=== PATIENT | male | born 1940 | race Caucasian/White ===

== ENCOUNTER → 2020-02-26 08:15 | Outpatient (CLI) | payer MEDICARE, BC, SELFPAY ==
[2020-02-18 13:38] VITALS: BMI 32.5
--- NOTE | 2020-02-26 08:28 | MRI_ITS ---
STUDY: MRI LUMBAR SPINE WITHOUT CONTRAST REASON FOR EXAM: Male, 79 years old. back pain -- severe pain left buttock and down left leg, prev lumbar surgery 2016 TECHNIQUE: Standardized fat and water weighted pulse sequences were obtained in the sagittal and axial planes. COMPARISON: X-ray lumbar spine 02/18/2020 FINDINGS: T12-L1: Normal endplates. Normal disc height, hydration and morphology. Normal bilateral facet joints. Normal central canal and bilateral lateral recesses. Normal bilateral intervertebral neural foramina. Normal lumbar lordosis. There is a broad curvature of the lumbar spine convex left. There is been prior operative intervention with interbody spacer at L3-L4 as well as bilateral pedicle screws and rods. Normal conus medullaris that terminates at the mid body of L2 L1-2: Small marginal osteophytes are present. There is disc desiccation with mild broad disc bulge minimally flattening the ventral aspect of the thecal sac but no evidence of significant central canal stenosis. There does appear increased signal intensity in the posterior annulus suggesting an annular tear. Refer for instance 2 image #8 series 2. There is mild bilateral facet arthropathy. The neural foramina are patent. L2-3: Disc desiccation with marginal osteophytes noted and a mild broad disc bulge. This disc bulge appears to narrow the right lateral recess though this area is difficult to evaluate due to ferromagnetic artifact from the prior intervention. There is no [id number] stenosis of the right neural foramen is suspected. The left neural foramen demonstrates mild stenosis. There is no evidence of significant central canal stenosis. There is mild bilateral facet arthropathy with fluid in the facet joints. L3-4: Prior operative intervention with previous laminectomy. Interbody spacer is present. There is no evidence of central or foraminal encroachment. L4-5: Disc height is maintained. Marginal osteophytes are present. There is bilateral facet arthropathy with fluid in the facet joints and on the left there appears impression into the left lateral recess secondary to the facet arthropathy, for instance refer to image #10 series 6. This creates stenosis of the left lateral recess. Loss of fat in the left lateral recesses is well seen for instance also on image #12 series 7. The right lateral recess appears patent. The neural foramina appear patent. L5-S1: Normal endplates. Mild disc bulge. There is moderately severe left facet arthropathy. There is mild right facet arthropathy. There is mild impression upon the left lateral recess. The right lateral recess is patent. The neural foramina on the left demonstrates moderate to severe stenosis, for instance refer to image #6 series 2. The right neural foramen is patent. Normal visualized sacral ala. Normal visualized paraspinous soft tissue structures. MRI/Spine Lumbar (Routine) IMPRESSION: Postsurgical changes as described. There does appear left lateral recess stenosis at L4-5 and left foraminal stenosis at L5-S1. See above for additional details. Electronically Signed: Jen Vincent MD at 11:48 EST , Service support ,
== END ==
PROVIDERS: PCP Family Medicine; Referring Provider Orthopaedic Surgery; Visit Provider Orthopaedic Surgery
DX: M54.16 Radiculopathy, lumbar region (principal)
CPT/HCPCS: 72148

== ENCOUNTER 2020-03-23 14:25 | Observation (INO) | payer MEDICARE, BC, SELFPAY ==
[2020-02-18 13:38] VITALS: BMI 32.5
--- NOTE | 2020-03-14 09:40 | EKG12_ITS ---
Test Reason : PREOP Blood Pressure : / mmHG Vent. Rate : 086 BPM Atrial Rate : 258 BPM P-R Int : 000 ms QRS Dur : 116 ms QT Int : 354 ms P-R-T Axes : 000 019 256 degrees QTc Int : [address] & T wave abnormality, consider inferior ischemia ST & T wave abnormality, consider anterolateral ischemia Abnormal ECG Confirmed by CHELO BENNETT, HUMZA ([id number]), copy editor TRINITY PARISI ([id number]) on 03/15/2020 9:14:15 AM Referred By: Nishant Read Confirmed By:HUMZA WHITNEY MD
[2020-03-14 10:17] LABS: Absolute Lymphocyte Count 1.27 X10^3/uL (0.83-4.51); Absolute Neutrophil Count 7.9 X10^3/uL (2.0-7.7); Basophil# 0.04 X10^3/uL; Basophil% 0.4 % (0-1); Eosinophil# 0.09 X10^3/uL; Eosinophils% 0.9 % (0-5); Hematocrit 39.6 % (40-54); Hemoglobin 13.1 g/dL (13.0-16.5); Lymphocyte # 1.27 X10^3/ul (4.0); Lymphocyte % 12.3 % (19-41); Mean Corp Hgb Conc 33.1 g/dL (32-36); Mean Corpuscular Hgb 32.4 pg (27.0-32.0); Mean Platelet Vol. 9.8 fl (6.2-12.0); Monocyte# 0.98 X10^3/uL; Monocyte% 9.5 % (0-10); NRBC Flagged by Analyzer 0 % (0-5); Neutrophil # 7.92 X10^3/uL (2.7-7.7); Neutrophil % 76.3 % (47-70); Platelet Count 170 K/mm3 (150-450); RBC Distribution Width CV 13.5 % (11.6-14.6); RBC Distribution Width SD 48.8 fl (35.1-43.9); Red Blood Count 4.04 M/mm3 (4.6-6.2); White Blood Count 10.4 K/mm3 (4.4-11.0)
[2020-03-14 10:28] LABS: International Normalized Ratio 1.2; Prothrombin Time (Protime)PT. 14.7 SECONDS (11.7-14.9)
[2020-03-14 10:43] LABS: Anion Gap 7 (5-15); BUN 27 mg/dL (7-18); BUN/Creat Ratio 19.6 RATIO (10-20); Calcium,Total 9.1 mg/dL (8.5-10.1); Chloride 101 mmol/L (98-107); Creatinine, Serum 1.38 mg/dL (0.70-1.30); EST Glomerular Filtration Rate 53 mL/min (>60); Est Glom Filt Rate - Afr Amer 64 mL/min (>60); Glucose 141 mg/dL (74-106); Potassium 3.4 mmol/L (3.5-5.1); Sodium Level 140 mmol/L (136-145)
[2020-03-14 10:49] LABS: AST(SGOT) 25 U/L (15-37); Alanine Aminotransfer ALT/SGPT 29 U/L (16-61); Albumin, Serum 3.5 g/dL (3.2-5.0); Alkaline Phosphatase 56 U/L (45-117); Bilirubin, Direct 0.16 mg/dL (0.00-0.30); Globulin 3.4 g/dL (2.2-4.2); Magnesium 2.1 mg/dL (1.6-2.6); Protein, Total 6.9 g/dL (6.4-8.2)
[2020-03-15 05:07] LABS: HEPATITIS B SURFACE AG Negative (Negative); Hepatitis A AB, Total Negative (Negative); Hepatitis A IgM Antibody Negative (Negative); Hepatitis B Core AB IgM Negative (Negative); Hepatitis B Core Ab Total Negative (Negative); Hepatitis C Ab <0.1 s/co ratio (0.0-0.9)
[2020-03-15 08:32] LABS: Hep B Surface Antibodies Non Reactive (.)
[2020-03-15 14:47] LABS: HIV - WCH Non-Reactive (Nonreactive)
[2020-03-23] VITALS (15 sets, daily range): BP systolic 99–124; BP diastolic 61–80; PULSE 56–79; RESP 16–18; TEMP 35.7–36.9; O2SAT 94–100; BMI 30.8
[2020-03-23] MEDS: Acetaminophen 500 MG Tablet 1000 MG PO (07:00)
[2020-03-23] MEDS: Lactated Ringers 1,000 ML 75 ML IV ×3 (09:33→14:41)
[2020-03-23 09:45] LABS: Bedside Glucose 108 mg/dL (70-110)
--- NOTE | 2020-03-23 10:33 | HP_ITS ---
Intake Intake Visit Reasons: lumbar spine Allergies adhesive tape Allergy (Severe, Verified 03/01/20 09:20) itching mold Allergy (Verified 03/09/20 08:43) Other enalapril Adverse Reaction (Verified 03/09/20 08:44) Other [facility] Medical History (Updated 02/18/20 @ 13:53 by Nory Cote) Atrial fibrillation (Acute) H/o lumbar decompressive laminectomy (Acute) Myasthenia gravis (Acute) h/o lumbar foraminotomy (Acute) Surgical History (Updated 02/18/20 @ 13:52 by Nory Cote) H/O cardiac catheterization (Acute) H/O lumbar discectomy (Acute) History of appendectomy (Acute) History of carpal tunnel surgery of right wrist (Acute) History of lumbar fusion (Acute) History of partial knee replacement (Acute) History of tonsillectomy (Acute) Hx of cataract surgery (Acute) Family History (Updated 02/18/20 @ 13:56 by Nory Cote) Mother Myocardial infarction Father Lung cancer Social History (Updated 03/17/20 @ 10:[address] Nishant Read DO) household members: spouse housing: house Smoking Status: Never smoker alcohol intake: never what type of physical activity do you participate in: none do you feel safe at home: Yes HPI lumbar spine: Details: Parts of this documentation were recorded by a scribe, this documentation accurately reflects the service provided and the decisions made by me, Dr. Nishant Read DO 03/17/20 0843. ERNST MEREDITH is a 79 year old M here today for preop appointment for Laminectomy,Lumbar Micro Decompression. Patient continues to have back pain. Denies any changes in pain, medications, allergies or medial hx. Gave patient surgical soap, surgical drinks. Patient aware to stop his Eliquis 48hrs prior to surgery. Ernst is here for his preoperative evaluation. His left leg pain continues unabated. We discussed the surgery at length what to expect and possible risks and complications. The history and physical was performed. His review of systems was unchanged from last time. Examination of the head was essentially normal. He had a normal rate and rhythm and his chest was clear to auscultation. Cranial nerves II through XII were intact. His abdomen was nontender and there were no masses palpated. I will see him again at surgery next . ROS Const Denies system reviewed and no additional complaints, except as docu, Denies chills, Denies fatigue, Denies fever(s), Denies frequent falls, Denies headache(s), Denies weakness ENT Denies headache(s) Card Denies system reviewed and no additional complaints, except as docu, Denies chest pain, Denies shortness of breath Resp Denies system reviewed and no additional complaints, except as docu, Denies chest congestion, Denies cough, Denies shortness of breath GI Denies system reviewed and no additional complaints, except as docu, Denies abdominal pain, Denies constipation, Denies incontinent of stools, Denies loose stools, Denies nausea, Denies vomiting Denies system reviewed and no additional complaints, except as docu, Denies urinary incontinence Musc Reports system reviewed and no additional complaints, except as docu, Reports abnormal walking, Reports joint pain, Reports numbness, Reports stiffness, Reports tingling Skin/Breast Denies system reviewed and no additional complaints, except as docu, Denies dry skin, Denies redness, Denies lesions, Denies new lesions, Denies non-healing lesions, Denies itching, Denies rash, Denies skin ulcer, Denies sores, Denies wounds Neuro Yes system reviewed and no additional complaints, except as docu, Yes abnormal walking, No frequent falls, No headache(s), Yes numbness, Yes radiating pain, Yes tingling, No weakness Endo Denies fatigue Assessment & Plan Problems 1. HNP (herniated nucleus pulposus), lumbar M51.26 Coding Level of Care Code Off vis,est,level 2 Diagnoses HNP (herniated nucleus pulposus), lumbar M51.26 Time Spent (min) 20
[2020-03-23] MEDS: Cefazolin 2 GM in 0.9% Normal Saline 100 ML IV (10:40)
[2020-03-23] MEDS: THROMBIN (RECOMBINANT) 20,000 UNIT VIAL 20000 UNIT TOPICAL (10:55)
--- NOTE | 2020-03-23 11:50 | RAD_ITS ---
STUDY: X-RAY - LUMBAR SPINE REASON FOR EXAM: Male, 79 years old. LAMINECTOMY L4, L5 TECHNIQUE: 1 view(s) of the lumbar spine were obtained. COMPARISON: None FINDINGS: Posterior fusion is seen at L3-4 in good alignment. Degenerative disease at L4-5 L5-S1. The soft tissue structures are unremarkable. RAD/Spine 1 View Any Level IMPRESSION: Posterior fusion is seen at L3-4 in good alignment. Electronically Signed: Mejia Ho MD at 12:02 EST Tel , Service support ,
--- NOTE | 2020-03-23 12:50 | PCM.OPRPT ---
Report of Operation Description of Surgical Findings:: Preoperative diagnosis: Disc protrusion with lateral recess stenosis L4-5 on the left Postoperative diagnoses: The same Procedure: Repeat laminectomy with opening of the lateral recess L4-5 left Surgeon: Dr. Read assistant health educator: Trevor MASCORRO Anesthesia: General endotracheal anesthesia administered by [facility] Drains: Medium Hemovac Estimated blood loss: Less than 20 cc Complications: None Patient was taken to the OR he was placed under general endotracheal anesthesia while on his gurney. Catheter was inserted. Neuro monitoring placed all the leads in the patient. We then moved him onto the prone position on the Deny frame with care to protect his bony prominences his genitalia the brachial plexus on both sides the ulnar nerves of both elbows and her his cervical spine. The back was then prepped and draped in standard fashion. A longitudinal incision centered over L4-5. Subcutaneous tissues were incised length of the skin incision. 5 some scar tissue because he did have pedicle screws between 3 and 4 fusion that was done 5 years ago. But we did not know was that they had done a laminectomy at L4-5 and simply not fused it. Took an intraoperative x-ray with the marker in place to assure that we were indeed at 4 5 which we were. And elevated the paravertebral muscles off the lamina 5 and turns out the lamina of 4 I was very suspicious that I did not feel full lamina like I should have. I at that point I suspected that they had indeed done laminectomy also at this level. Very carefully found the edges of the laminectomy and released the scar tissue from around the site. Note that the left a lot of ligamentum flavum lateralward including the superior facet L5 the cause lateral recess stenosis on top of the the disc protrusion on the left side. Carefully and judiciously using curettes and 45 degree Kerrison rongeurs to slowly enlarge the laminectomy I also was able to release the scar and ligamentum flavum off the top of the L5 lamina and laminectomy on the top of L5 was also carried out with 45 degree Kerrison rongeurs. I used an osteotome to perform a medial facetectomy 545 first removing the bottom of L4 releasing the underside of the facet of L5. 5 degree Kerrison rongeurs were then used to finish the medial facetectomy. Had a hard time releasing all the ligamentum flavum off the bone from it was left on the dura of course there was no need to actually remove it since it was quite adhered to it. Fashion I was able to completely open the lateral recess. I then slowly released adhesions off of the disc space and the disc was identified. Note the dull though it was bulging once the lateral recess was open there was no actual pressure on the L5 nerve. Therefore the decision was made to leave the disc alone as violating the disc and removing disc material with more quickly degenerated to 4 5 space pressure with a fusion above would end up having problem with it in the future. That throughout the case we carried out thorough irrigation repeatedly. Also we used a bipolar cautery and thrombin-soaked Gelfoam to maintain epidural hemostasis. We had excellent hemostasis after thoroughly irrigated 1 last time I placed an amnionic membrane directly over the dura and nerve root to prevent any more adhesions. Especially true after having had a laminectomy there before. In place Gelfoam over the top of that a medium Hemovac was then inserted and closure was begun. We closed the lumbar fascia using [id number] suture with #1 Vicryl for closure of subcutaneous tissues with 2-0 Vicryl in interrupted fashion and the skin was approximated using skin clips sterile dressings were applied the drain was sewn in and sterile dressings were then applied. He was then recovered in the OR he was moved to his hospital bed and taken to recovery in satisfactory condition this interoperative summary: Ernst Gamino.
--- NOTE | 2020-03-23 14:15 | CON.PCM_ITS ---
Problem List (1) Myasthenia gravis Status: Chronic (2) Chronic A. fib Status: Chronic (3) Chronic lower back pain, sciatica Status: Acute Reason for Consult Date of Consultation: 03/23/20 Reason for Consultation: Perioperative management of myasthenia gravis and A. fib History of Present Illness: The patient is a 79 year old M with history of myasthenia gravis diagnosed June 2019 as per patient and chronic A. fib on digoxin and Eliquis was admitted for elective repeat laminectomy. Patient has lumbar degenerative disorder with disc protrusion, lateral recess stenosis L4-L5 on the left. Patient had laminectomy with opening of lateral recess L4-L5 on the left side by Dr. Read under general anesthesia. Patient has drain. Myasthenia gravis: Patient denies any history of myasthenia crisis in recent past. Is on prednisone 5 mg daily and pyridostigmine. Denies any ocular, facial, cervical muscle weakness. Patient has Cintron catheter. A. fib: Last EKG on March 14 shows A. fib at 86 bpm with previous/old inferior infarct. Patient had last echo in April 06, 2019 shows EF 60 to 65%, LA dilated, RA markedly dilated, RVSP 19 mmHg. Patient follows process pumper Dr. Henley in [place] and also follows neurologist in [place]. [] Past Medical History Past Medical History (Chronic Problems): Chronic Problems (Last Updated 02/18/20 @ 13:53 by Nory Cote) Myasthenia gravis (Chronic) Chronic A. fib (Chronic) Medical History: Medical History (Last Updated 02/18/20 @ 13:53 by Nory Cote) Atrial fibrillation I48.91 H/o lumbar decompressive laminectomy L3-L4 Myasthenia gravis G70.00 h/o lumbar foraminotomy bilateral L3 through L5 partial Allergies adhesive tape Allergy (Severe, Verified 03/23/20 09:06) itching mold Allergy (Verified 03/23/20 09:06) Other DEFINED WITH ALLERGY TESTING enalapril Adverse Reaction (Verified 03/23/20 09:06) Other COUGH Home Medications: Ambulatory Orders Medication Instructions Recorded B-complex with vitamin C 1 tab PO DAILY 02/18/20 apixaban 5 mg tablet 1 tab PO BID 02/18/20 digoxin 125 mcg (0.125 mg) tablet 1 tab PO DAILY 02/18/20 dutasteride 0.5 mg capsule 0.5 mg PO DAILY 02/18/20 furosemide 40 mg tablet 1 tab PO DAILY 02/18/20 gabapentin 100 mg capsule 100 mg PO BID 02/18/20 metoprolol succinate 25 mg 25 mg PO DAILY 02/18/20 tablet,extended release 24 hr potassium chloride 10 mEq 20 meq PO DAILY 02/18/20 capsule,extended release pyridostigmine bromide 60 mg tablet 60 mg PO TID 02/18/20 red yeast rice 600 mg capsule 1,200 mg PO DAILY 02/18/20 rosuvastatin 10 mg tablet 10 mg PO QHS 02/18/20 tamsulosin 0.4 mg capsule 0.4 mg PO DAILY 02/18/20 vit C,E,zinc,copper-[id number] 250 1 cap PO DAILY 02/18/20 mg-lutein 5 mg-zeaxanthin 1 mg capsule prednisone 20 mg tablet 5 mg PO DAILY tab 03/01/20 Albuterol Inhaler [Ventolin Hfa 1 - 2 puff INHALATION Q6H PRN PRN 03/09/20 (SP)] Amoxicillin [Amoxil] 2,000 mg PO UD 03/09/20 Fluticasone/Salmeterol [Advair 1 ea IH BID 03/09/20 500-50 Diskus] Multivit-Min/FA/Lycopen/Lutein 1 ea PO DAILY 03/09/20 [Centrum Silver Men Tablet] Surgical History: Surgical History (Last Updated 02/18/20 @ 13:52 by Nory Cote) H/O cardiac catheterization Z98.890 H/O lumbar discectomy Z98.890 right L3 with posterior lumbar interbody fusion at L3-L4 History of appendectomy Z90.49 History of carpal tunnel surgery of right wrist Z98.890 History of lumbar fusion Z98.1 bilateral L3-L4 #dX instrumented fusion with local bone Mastergraft and BMP fusion with intraoperative biplanar fluoroscopy History of partial knee replacement Z96.659 left and right History of tonsillectomy Z90.89 Hx of cataract surgery Z98.49 bilaterally Smoking Status: Never smoker Tobacco Use: Non-smoker Review of Systems Constitutional: Denies: Chills, Fever, Weight Change HEENT: Denies: Head Aches, Sinus Congestion, Sinus Drainage Cardiovascular: Denies: Chest Pain, Palpitations Respiratory: Denies: Cough, Shortness of breath at rest, Sputum production Gastrointestinal: Denies: Abdominal Pain, Nausea, Vomiting Genitourinary: Denies: Dysuria Musculoskeletal: Reports: Back Pain, Joint stiffness - Back stiffness, Leg Pain, Muscle pain. Denies: Joint Pain, Joint Tenderness Skin: Denies: Rash, Wounds Neurological: Denies: Focal weakness, Numbness, Tingling Psychiatric: Denies: Anxiety, Depression, Homicidal Ideations, Suicidal Ideations Hematologic/ Lymphatic: Denies: Easy Bruising, Easy Bleeding Objective: Physical exam General: Alert, Oriented x3, Cooperative HEENT: Atraumatic, PERRLA, EOMI, Normocephalic Oral: Oral mucosa moist. No Gingival or Mucosal Lesions/ Ulcerations Neck: Supple, No JVD, Negative Carotid Bruits Lungs: Air entry diminished in bilateral lung bases. No crepitation/rhonchi Cardiovascular: Irregular rate, A. fib at 70 bpm, Normal S1, Normal S2, No murmurs Abdomen: Bowel Sounds Present, Soft, Non Tender, Non-Distended : Cintron catheter, dark yellow urine, 40 mL. No renal angle tenderness. No suprapubic tenderness. Extremities: No edema, Capillary Refill Less than 3 Seconds Skin: No rashes, No breakdown Musculoskeletal: No Tenderness to Palpation of Joints or Extremities Spine: Dressing at the lumbar spine is dry. Small CARMINE drain with a small amount of serosanguineous discharge. Neurological: Cranial nerves II-XII grossly intact, Deep Tendon Reflexes 2+/4 and Symmetrical, Neuro grossly intact Psych/Mental Status: Normal Affect, Appropriate. - Physical Exam Vitals/I&O's: Vital Signs Temp Pulse Resp BP Pulse Ox 96.4 F L 70 16 114/73 100 03/23/20 13:48 03/23/20 13:48 03/23/20 13:48 03/23/20 13:45 03/23/20 13:48 Oxygen Flow Rate (L/min) 6 Oxygen Delivery Method Simple Mask Weight: 240 lb 1.334 oz Body Mass Index (BMI) 30.8 Intake and Output for Last 24 Hours 03/21/20 03/22/20 03/23/20 23:59 23:59 23:59 Intake Total 1217 / 1217 Output Total 43 / 43 Balance 1174 / 1174 Microbiology Past 72 Hours 03/22/20 09:55 Interface Orders SARS-CoV-2 Antigen (Rapid) - Final Laboratory Results 03/23/20 09:18: POC Glucose 108 Current Medications Diazepam (Diazepam 5 Mg Tablet) 5 mg PO Q6H PRN PRN PRN Reason: Muscle Spasms Enteral Nutritional Formula (Ensure Surgery 237 Ml Liquid) 237 ml PO TIDCM [facility] Famotidine (Famotidine 20 Mg Tablet) 20 mg PO BID [facility] Lactated Ringer's () 1,000 mls @ 75 mls/hr IV .[id number] [facility] Last Admin: 03/23/20 13:19 Dose: 75 mls/hr Documented by: Cefazolin Sodium () 1 gm in 50 mls @ 100 mls/hr IV Q8H [facility] Stop: 03/24/20 02:59 Insulin Human Lispro (Insulin Lispro 100 Unit/Ml Insuln.Pen) 1 - 6 unit SC Q4H PRN PRN; Protocol PRN Reason: BG>/= 180, SEE PROTOCOL Stop: 03/23/20 18:00 Morphine Sulfate (Morphine 4 Mg/Ml Syringe) 2 - 4 mg IV Q2H PRN PRN PRN Reason: Pain Score 6-10 Morphine Sulfate (Morphine 2 Mg/Ml Syringe) 2 - 4 mg IV Q2H PRN PRN PRN Reason: Pain Score 6-10 Ondansetron HCl (Ondansetron 4 Mg/2 Ml Vial) 4 mg IV Q8H PRN PRN PRN Reason: NAUSEA Senna/Docusate Sodium (Senna/Docusate Sodium 1 Tablet) 2 tablet PO BID [facility] Sodium Chloride (0.9% Nacl Peripheral Flush Adult/Peds) 5 - 15 ml IV UD PRN PRN Reason: SALINE FLUSH Tramadol HCl (Tramadol 50 Mg Tablet) 50 - 100 mg PO Q6H PRN PRN PRN Reason: Pain Score 4-5 Zolpidem Tartrate (Zolpidem Tartrate 5 Mg Tablet) 5 mg PO QHS PRN PRN PRN Reason: INSOMNIA Assessment/Plan All Active Problems (Last Updated 02/18/20 @ 13:53 by Nory Cote) Chronic lower back pain, sciatica (Acute) This 71-year-old gentleman admitted elective for repeat laminectomy with opening of lateral recess L4-L5 on the left after continued lumbar spinal sciatica pain with radiation to left lower extremity 1. Myasthenia gravis: Patient on pyridostigmine 60 mg 3 times daily, prednisone 5 mg daily and continued. Patient denies any recent myasthenia crisis and is doing good on these medications. Follow-up neurologist as an outpatient. 2. Chronic A. fib on Eliquis: Currently Eliquis on hold. Continue metoprolol. Continue digoxin from tomorrow a.m. heart rate is controlled 56 to 70/min, blood pressure 124/74. CBC, BMP and magnesium ordered. Will leave the decision of resumption of Eliquis on Dr. Dillard saying surgical risk of bleeding. If surgical bleeding risk is acceptable can resume in 24 to 48 hours. Patient denies history of chronic heart failure, coronary artery disease/OR or cardiac stent. He stated he is on Lasix because of leg swelling after starting on prednisone 40 mg which is tapered down to 5 mg now. Patient had last echo in April 06, 2019 in [facility] which shows EF 60 to 65%, LA dilated, RA markedly dilated, RVSP 19 mmHg. Patient follows process pumper Dr. Andrea Henley in [place] [] 3. BPH: Urine output is low 40 mL. Continue IV fluid Ringer lactate. Patient on tamsulosin and dutasteride and regimen. 4. COPD/asthma overlap syndrome: Continue patient Advair. Albuterol inhaler as needed 5. 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 Read. PT and OT ordered. Patient is on Neurontin and continued 6. Other comorbidities include dyslipidemia: Patient on rosuvastatin. VTE prophylaxis: Bilateral SCDs. Inpatient E&M: 24242 Init Hosp L3
[2020-03-23] MEDS: 0.9% NaCl Peripheral Flush Adult/Peds IV ×2 (14:26→18:38)
[2020-03-23] MEDS: Morphine 2 MG/ML Syringe IV ×2 (14:26→18:38)
[2020-03-23] MEDS: Potassium Chloride Oral Tablet 20 MEQ 40 MEQ PO (14:45)
[2020-03-23 16:04] LABS: Absolute Lymphocyte Count 0.34 X10^3/uL (0.83-4.51); Absolute Neutrophil Count 8.5 X10^3/uL (2.0-7.7); Basophil# 0.02 X10^3/uL; Basophil% 0.2 % (0-1); Hematocrit 38.2 % (40-54); Hemoglobin 11.9 g/dL (13.0-16.5); Lymphocyte # 0.34 X10^3/ul (4.0); Lymphocyte % 3.8 % (19-41); Mean Corp Hgb Conc 31.2 g/dL (32-36); Mean Corpuscular Hgb 31.9 pg (27.0-32.0); Mean Corpuscular Volume 102.4 fL (80-94); Mean Platelet Vol. 9.5 fl (6.2-12.0); Monocyte# 0.13 X10^3/uL; Monocyte% 1.4 % (0-10); NRBC Flagged by Analyzer 0 % (0-5); Neutrophil # 8.48 X10^3/uL (2.7-7.7); Neutrophil % 94.2 % (47-70); POSITIVE DIFFERENTIAL YES; Platelet Count 218 K/mm3 (150-450); RBC Distribution Width CV 13.7 % (11.6-14.6); Red Blood Count 3.73 M/mm3 (4.6-6.2)
[2020-03-23 16:18] LABS: Anion Gap 3 (5-15); BUN 15 mg/dL (7-18); BUN/Creat Ratio 14.2 RATIO (10-20); Calcium,Total 8.6 mg/dL (8.5-10.1); Chloride 113 mmol/L (98-107); Creatinine, Serum 1.06 mg/dL (0.70-1.30); EST Glomerular Filtration Rate 72 mL/min (>60); Est Glom Filt Rate - Afr Amer 87 mL/min (>60); Estimated Creatinine Clearance 66.78 ml/min; Glucose 122 mg/dL (74-106); Magnesium 2.7 mg/dL (1.6-2.6); Potassium 4.3 mmol/L (3.5-5.1); Sodium Level 142 mmol/L (136-145)
[2020-03-23 16:29] LABS: Differential Indicated SCAN CRITERIA MET
[2020-03-23 16:30] LABS: Anisocytosis 1+; Macrocytosis 1+; Platelet Estimate ADEQUATE (ADEQ); Red Cell Morphology N CHROM NORMAL (NORM C&C)
[2020-03-23] MEDS: Tamsulosin HCl 0.4 MG Capsule PO (17:08)
[2020-03-23] MEDS: Ensure Surgery 237 ML LIQUID PO (17:08)
[2020-03-23] MEDS: Cefazolin 1 GM/50 ML BAG IV (18:38)
[2020-03-23] MEDS: Albuterol 2.5 MG/3 ML VIAL.NEB. INHALATION (19:50)
[2020-03-23] MEDS: Atorvastatin Calcium 20 MG Tablet PO (22:23)
[2020-03-23] MEDS: Gabapentin 100 MG Capsule PO (22:24)
[2020-03-23] MEDS: Famotidine 20 MG Tablet PO (22:24)
[2020-03-23] MEDS: Senna/Docusate Sodium 1 Tablet 2 TABLET PO (22:24)
[2020-03-23] MEDS: Pyridostigmine Bromide 60 MG Tablet PO (22:28)
[2020-03-24] VITALS (11 sets, daily range): BP systolic 97–118; BP diastolic 55–70; PULSE 53–84; RESP 16–18; TEMP 36.4–36.6; O2SAT 93–96
[2020-03-24] MEDS: Cefazolin 1 GM/50 ML BAG IV (02:18)
[2020-03-24 05:58] LABS: Absolute Lymphocyte Count 0.72 X10^3/uL (0.83-4.51); Absolute Neutrophil Count 10.1 X10^3/uL (2.0-7.7); Basophil# 0.01 X10^3/uL; Basophil% 0.1 % (0-1); Hematocrit 33.3 % (40-54); Hemoglobin 10.4 g/dL (13.0-16.5); Lymphocyte # 0.72 X10^3/ul (4.0); Lymphocyte % 6.2 % (19-41); Mean Corp Hgb Conc 31.2 g/dL (32-36); Mean Corpuscular Hgb 32.3 pg (27.0-32.0); Mean Corpuscular Volume 103.4 fL (80-94); Mean Platelet Vol. 9.6 fl (6.2-12.0); Monocyte# 0.73 X10^3/uL; Monocyte% 6.3 % (0-10); NRBC Flagged by Analyzer 0 % (0-5); Neutrophil # 10.13 X10^3/uL (2.7-7.7); Neutrophil % 86.9 % (47-70); Platelet Count 206 K/mm3 (150-450); RBC Distribution Width CV 13.8 % (11.6-14.6); RBC Distribution Width SD 52.8 fl (35.1-43.9); Red Blood Count 3.22 M/mm3 (4.6-6.2); White Blood Count 11.7 K/mm3 (4.4-11.0)
[2020-03-24 06:28] LABS: Anion Gap 2 (5-15); BUN 15 mg/dL (7-18); BUN/Creat Ratio 15.7 RATIO (10-20); Calcium,Total 8.3 mg/dL (8.5-10.1); Chloride 112 mmol/L (98-107); Creatinine, Serum 0.96 mg/dL (0.70-1.30); EST Glomerular Filtration Rate 81 mL/min (>60); Est Glom Filt Rate - Afr Amer 98 mL/min (>60); Estimated Creatinine Clearance 73.73 ml/min; Glucose 114 mg/dL (74-106); Potassium 4.6 mmol/L (3.5-5.1); Sodium Level 141 mmol/L (136-145)
[2020-03-24] MEDS: 0.9% NaCl Peripheral Flush Adult/Peds IV (06:28)
[2020-03-24] MEDS: Pyridostigmine Bromide 60 MG Tablet PO ×2 (06:29→13:04)
[2020-03-24] MEDS: Albuterol 2.5 MG/3 ML VIAL.NEB. INHALATION ×2 (06:45→13:22)
[2020-03-24] MEDS: Potassium Chloride Oral Tablet 20 MEQ PO (08:39)
[2020-03-24] MEDS: Finasteride 5 MG Tablet PO (08:39)
[2020-03-24] MEDS: predniSONE 5 MG Tablet PO (08:39)
[2020-03-24] MEDS: Famotidine 20 MG Tablet PO (08:39)
[2020-03-24] MEDS: Gabapentin 100 MG Capsule PO (08:39)
[2020-03-24] MEDS: Furosemide 40 MG Tablet PO (08:39)
[2020-03-24] MEDS: Ensure Surgery 237 ML LIQUID PO ×2 (08:40→13:04)
[2020-03-24 08:51] LABS: Hemoglobin A1c 5.9 % (3.8-5.6)
[2020-03-24] MEDS: oxyCODONE 5 MG Tablet PO ×2 (09:08→13:10)
--- NOTE | 2020-03-24 09:18 | DCINST_ITS ---
Discharge Diet: No Restrictions Discharge Activity: May Not Drive, May Shower May shower in (days): 5 May resume sexual activity in: 6-8 weeks Weight Bearing Status: Full weight bearing Call your doctor if your incision/area has: Continuous Slow Oozing, Increased Pain/ Swelling, Foul Smelling Discharge Call your doctor if you observe: Fever of 101 or Higher, Shortness of breath, Dizziness, Fainting spells, Chest pain Change Dressing in (Days):: 4 Remove Dressing in (days):: 4 Cleanse incision/area with: Soap & Water Allergies/Adverse Reactions: Allergies adhesive tape Allergy (Severe, Verified 03/23/20 09:06) itching mold Allergy (Verified 03/23/20 09:06) Other DEFINED WITH ALLERGY TESTING enalapril Adverse Reaction (Verified 03/23/20 09:06) Other COUGH Medications to take at Discharge B-complex with vitamin C 1 tab PO DAILY 02/18/20 apixaban 5 mg tablet 1 tab PO BID 02/18/20 digoxin 125 mcg (0.125 mg) tablet 1 tab PO DAILY 02/18/20 dutasteride 0.5 mg capsule 0.5 mg PO DAILY 02/18/20 furosemide 40 mg tablet 1 tab PO DAILY 02/18/20 gabapentin 100 mg capsule 100 mg PO BID 02/18/20 metoprolol succinate 25 mg tablet,extended release 24 hr 25 mg PO DAILY 02/18/20 potassium chloride 10 mEq capsule,extended release 20 meq PO DAILY 02/18/20 pyridostigmine bromide 60 mg tablet 60 mg PO TID 02/18/20 red yeast rice 600 mg capsule 1,200 mg PO DAILY 02/18/20 rosuvastatin 10 mg tablet 10 mg PO QHS 02/18/20 tamsulosin 0.4 mg capsule 0.4 mg PO DAILY 02/18/20 vit C,E,zinc,copper-clgtd5r 250 mg-lutein 5 mg-zeaxanthin 1 mg capsule 1 cap PO DAILY 02/18/20 Albuterol Inhaler [Ventolin Hfa] 1 - 2 puff INHALATION Q6H PRN PRN 03/09/20 Amoxicillin [Amoxil] 2,000 mg PO UD 03/09/20 Fluticasone/Salmeterol [Advair 500-50 Diskus] 1 ea IH BID 03/09/20 Multivit-Min/FA/Lycopen/Lutein [Centrum Silver Men Tablet] 1 ea PO DAILY 03/09/20 Primary Care Physician: Taiwo Almazan MD [Primary Care Provider] - Test Results: Test results from this visit will be discussed in further detail at your follow- up appointment, if applicable. Please Follow Up With: Dr Read When: appointment set Proposed Discharge Date: 03/24/20
--- NOTE | 2020-03-24 09:43 | CASEMGMT ---
NICHOLAS PETERSEN NOTE: To room to meet with pt to discuss discharge planning. Pt resting in bed, awake/alert/oriented. Pt states he lives with his in a 3-story home but can stay mostly on one floor where his bedroom is and bathroom. There are 8 steps going up to that floor w/railing and he feels he will do okay getting up and down them. His brother is planning on staying with him and his for a week to help out as well. He is aware therapy will work with him today. Call placed to therapist, Rona, and she was made aware of pt needing to be able to do stairs safely before returning home. Pt states he has all the DME he needs, including, walker, walk-in tub, shower seat, and nebulizer. He denies need for HHC or OP therapy. He denies other needs or concerns. D/C Plan: Home. PT/OT evals pending. Nadege DUNLAP RN, CM
--- NOTE | 2020-03-24 10:02 | PCM.DC.SUM ---
Discharge Date and Diagnosis - Problem List Patient Problems: Active and Suspected Problems (Last Updated 02/18/20 @ 13:53 by Nory Cote) Chronic lower back pain, sciatica (Acute) Date of Admission: 03/23/20 Date of Discharge: 03/24/20 - Primary Discharge Diagnosis Acute Problems: Active Problems (Last Updated 02/18/20 @ 13:53 by Nory Cote) Chronic lower back pain, sciatica (Acute) - Secondary Discharge Diagnosis Chronic Problems: Chronic Problems (Last Updated 02/18/20 @ 13:53 by Nory Cote) Myasthenia gravis (Chronic) Chronic A. fib (Chronic) Hospital Course and Treatment Summary of Care Provided: This patient was admitted on March 23, 2020 and is discharged on March 24, 2020. Date of admission he underwent lumbar laminectomy repeat in nature at L4-5 on the right side. Today he reported complete relief of his leg pain. In addition we removed the dressing and pulled the drain. Vision is healing well. Neurologically he remains intact. Given directions regarding his activities. He is not to drive for now is not to lift more than 15 pounds. He can eat the diet that he has eaten in the past. Take is a medications that he has taken in the past. Also told that he needs to be able to start walking and likely he has a treadmill. The goal is to reach 1 mile 1 month from now. He has an appointment to see me in the office in a couple of weeks. Told him that he if anything should not seem right that he could call anytime. In addition he is to remove the dressing in 4 days and he can start taking showers at that time. He is not to put any lotions hydrogen peroxide creams or anything else on the wound other than soap and water. It can be left open to the air after removal of the dressing. I will see him again when he returns to my office. In addition he got hydrocodone 10 mg for pain and I gave him 40 of those pills. Patient Problems: Active and Suspected Problems (Last Updated 02/18/20 @ 13:53 by Nory Cote) Chronic lower back pain, sciatica (Acute) - Physical Exam Vitals/I&O's: Vital Signs Temp Pulse Resp BP Pulse Ox 97.9 F 53 L 16 97/55 L 96 03/24/20 08:34 03/24/20 08:34 03/24/20 08:34 03/24/20 08:34 03/24/20 08:34 Oxygen Flow Rate (L/min) 6 Oxygen Delivery Method Room Air Weight: 240 lb 1.334 oz Body Mass Index (BMI) 30.8 Intake and Output for Last 24 Hours 03/22/20 03/23/20 03/24/20 23:59 23:59 23:59 Intake Total 1369.5 / 2019.5 1892.25 / 1892.25 Output Total 248 / 663 1385 / 1385 Balance 1121.5 / 1356.5 507.25 / 507.25 Microbiology Past 72 Hours 03/22/20 09:55 Interface Orders SARS-CoV-2 Antigen (Rapid) - Final Laboratory Results 03/23/20 15:47: WBC 9.0, RBC 3.73 L, Hgb 11.9 L, Hct 38.2 L, MCV 102.4 H, MCH 31.9, MCHC 31.2 L, RDW Std Deviation 52.0 H, RDW Coeff of [place] 13.7, Plt Count 218, MPV 9.5, Immature Gran % (Auto) 0.400, Neut % (Auto) 94.2 H, Lymph % (Auto) 3.8 L, [place] % (Auto) 1.4, Eos % (Auto) 0.0, Baso % (Auto) 0.2, Absolute Neuts (auto) 8.5 H, Absolute Lymphs (auto) 0.34 L, Nucleated RBC % 0, Differential Comment SEE COMMENT, Platelet Estimate ADEQUATE, RBC Morphology N CHROM, Anisocytosis 1+, Macrocytosis 1+ 03/23/20 15:47: Sodium 142, Potassium 4.3, Chloride 113 H, Carbon Dioxide 26.0, Anion Gap 3 L, BUN 15, Creatinine 1.06, Estim Creat Clear Calc 66.78, Est GFR (MDRD) Af Amer 87, Est GFR (MDRD) Non-Af 72, BUN/Creatinine Ratio 14.2, Glucose 122 H, Calcium 8.6, Magnesium 2.7 H 03/24/20 05:25: WBC 11.7 H, RBC 3.22 L, Hgb 10.4 L, Hct 33.3 L, MCV 103.4 H, MCH 32.3 H, MCHC 31.2 L, RDW Std Deviation 52.8 H, RDW Coeff of [place] 13.8, Plt Count 206, MPV 9.6, Immature Gran % (Auto) 0.500, Neut % (Auto) 86.9 H, Lymph % (Auto) 6.2 L, [place] % (Auto) 6.3, Eos % (Auto) 0.0, Baso % (Auto) 0.1, Absolute Neuts (auto) 10.1 H, Absolute Lymphs (auto) 0.72 L, Nucleated RBC % 0 03/24/20 05:25: Sodium 141, Potassium 4.6, Chloride 112 H, Carbon Dioxide 27.0, Anion Gap 2 L, BUN 15, Creatinine 0.96, Estim Creat Clear Calc 73.73, Est GFR (MDRD) Af Amer 98, Est GFR (MDRD) Non-Af 81, BUN/Creatinine Ratio 15.7, Glucose 114 H, Calcium 8.3 L 03/24/20 05:25: Hemoglobin A1c 5.9 H Current Medications Albuterol Sulfate (Albuterol 2.5 Mg/3 Ml Vial.Neb.) 2.5 mg INHALATION Q6H PRN PRN PRN Reason: Asthma Albuterol Sulfate (Albuterol 2.5 Mg/3 Ml Vial.Neb.) 2.5 mg INHALATION Q6HWA.RT [facility] Last Admin: 03/24/20 06:45 Dose: 2.5 mg Documented by: Atorvastatin Calcium (Atorvastatin Calcium 20 Mg Tablet) 20 mg PO QHS [facility] Last Admin: 03/23/20 22:23 Dose: 20 mg Documented by: Diazepam (Diazepam 5 Mg Tablet) 5 mg PO Q6H PRN PRN PRN Reason: Muscle Spasms Digoxin (Digoxin 125 Mcg Tablet) 125 mcg PO DAILY [facility] Enteral Nutritional Formula (Ensure Surgery 237 Ml Liquid) 237 ml PO TIDCM [facility] Last Admin: 03/24/20 08:40 Dose: 237 ml Documented by: Famotidine (Famotidine 20 Mg Tablet) 20 mg PO BID [facility] Last Admin: 03/24/20 08:39 Dose: 20 mg Documented by: Finasteride (Finasteride 5 Mg Tablet) 5 mg PO DAILY [facility] Last Admin: 03/24/20 08:39 Dose: 5 mg Documented by: Furosemide (Furosemide 40 Mg Tablet) 40 mg PO DAILY [facility] Last Admin: 03/24/20 08:39 Dose: 40 mg Documented by: Gabapentin (Gabapentin 100 Mg Capsule) 100 mg PO BID [facility] Last Admin: 03/24/20 08:39 Dose: 100 mg Documented by: Lactated Ringer's () 1,000 mls @ 75 mls/hr IV .[id number] [facility] Last Infusion: 03/24/20 07:02 Dose: Infused Documented by: Metoprolol Succinate (Metoprolol(Xl)Succ 25 Mg Tablet) 25 mg PO DAILY [facility] Morphine Sulfate (Morphine 4 Mg/Ml Syringe) 2 - 4 mg IV Q2H PRN PRN PRN Reason: Pain Score 6-10 Morphine Sulfate (Morphine 2 Mg/Ml Syringe) 2 - 4 mg IV Q2H PRN PRN PRN Reason: Pain Score 6-10 Last Admin: 03/23/20 18:38 Dose: 2 mg Documented by: Ondansetron HCl (Ondansetron 4 Mg/2 Ml Vial) 4 mg IV Q8H PRN PRN PRN Reason: NAUSEA Oxycodone HCl (Oxycodone 5 Mg Tablet) 5 - 10 mg PO Q4H PRN PRN PRN Reason: Pain Score 6-10 Last Admin: 03/24/20 09:08 Dose: 5 mg Documented by: Potassium Chloride (Potassium Chloride Oral Tablet 20 Meq) 20 meq PO DAILY [facility] Last Admin: 03/24/20 08:39 Dose: 20 meq Documented by: Prednisone ([facility] 5 Mg Tablet) [facility] Last Admin: 03/24/20 08:39 Dose: 5 mg Documented by: Pyridostigmine [place] (Pyridostigmine [place] 60 Mg Tablet) 60 mg PO TID [facility] Last Admin: 03/24/20 06:29 Dose: 60 mg Documented by: Senna/Docusate Sodium (Senna/Docusate Sodium 1 Tablet) 2 tablet PO BID [facility] Last Admin: 03/23/20 22:24 Dose: 2 tablet Documented by: Sodium Chloride (0.9% Nacl Peripheral Flush Adult/Peds) 5 - 15 ml IV UD PRN PRN Reason: SALINE FLUSH Last Admin: 03/24/20 06:28 Dose: 10 ml Documented by: Sodium Chloride (0.9% Saline Lock 10 Ml Syringe) 10 - 40 ml IV UD PRN PRN Reason: SALINE FLUSH Tamsulosin HCl (Tamsulosin Hcl 0.4 Mg Capsule) 0.4 mg PO DAILY@1730 [facility] Last Admin: 03/23/20 17:08 Dose: 0.4 mg Documented by: Tramadol HCl (Tramadol 50 Mg Tablet) 50 - 100 mg PO Q6H PRN PRN PRN Reason: Pain Score 4-5 Zolpidem Tartrate (Zolpidem Tartrate 5 Mg Tablet) 5 mg PO QHS PRN PRN PRN Reason: INSOMNIA Discharge Diet: No Restrictions Discharge Activity: May Not Drive, May Shower May shower in (days): 5 May resume sexual activity in: 6-8 weeks Weight Bearing Status: Full weight bearing Call your doctor if your incision/area has: Continuous Slow Oozing, Increased Pain/ Swelling, Foul Smelling Discharge Call your doctor if you observe: Fever of 101 or Higher, Shortness of breath, Dizziness, Fainting spells, Chest pain Change Dressing in (Days):: 4 Remove Dressing in (days):: 4 Cleanse incision/area with: Soap & Water Home Medications: Medications to take at Discharge B-complex with vitamin C 1 tab PO DAILY 02/18/20 apixaban 5 mg tablet 1 tab PO BID 02/18/20 digoxin 125 mcg (0.125 mg) tablet 1 tab PO DAILY 02/18/20 dutasteride 0.5 mg capsule 0.5 mg PO DAILY 02/18/20 furosemide 40 mg tablet 1 tab PO DAILY 02/18/20 gabapentin 100 mg capsule 100 mg PO BID 02/18/20 metoprolol succinate 25 mg tablet,extended release 24 hr 25 mg PO DAILY 02/18/20 potassium chloride 10 mEq capsule,extended release 20 meq PO DAILY 02/18/20 pyridostigmine bromide 60 mg tablet 60 mg PO TID 02/18/20 red yeast rice 600 mg capsule 1,200 mg PO DAILY 02/18/20 rosuvastatin 10 mg tablet 10 mg PO QHS 02/18/20 tamsulosin 0.4 mg capsule 0.4 mg PO DAILY 02/18/20 vit C,E,zinc,copper-[id number] 250 mg-lutein 5 mg-zeaxanthin 1 mg capsule 1 cap PO DAILY 02/18/20 Albuterol Inhaler [Ventolin Hfa] 1 - 2 puff INHALATION Q6H PRN PRN 03/09/20 Amoxicillin [Amoxil] 2,000 mg PO UD 03/09/20 Fluticasone/Salmeterol [Advair 500-50 Diskus] 1 ea IH BID 03/09/20 Multivit-Min/FA/Lycopen/Lutein [Centrum Silver Men Tablet] 1 ea PO DAILY 03/09/20 Primary Care Physician: Taiwo Almazan MD [Primary Care Provider] - Please Follow Up With: Dr Read When: appointment set Medical Necessity - Tobacco Use Smoking Status: Never smoker Tobacco Use: Non-smoker Meaningful Use Info Meaningful Use Diagnoses (Choose all that apply): None applicable
[2020-03-24] MEDS: Senna/Docusate Sodium 1 Tablet 2 TABLET PO (10:58)
[2020-03-24] MEDS: Digoxin 125 MCG Tablet PO (10:59)
[2020-03-24] MEDS: Metoprolol(XL)Succ 25 MG Tablet PO (10:59)
--- NOTE | 2020-03-24 11:51 | PHA.DC.MR ---
Pharmacy Service has performed discharge medication reconciliation for this patient. No new medications at time of DC medlist review. medications reviewed are from previously reported home medications. Home Medications B-complex with vitamin C 1 tab PO DAILY 02/18/20 apixaban 5 mg tablet 1 tab PO BID 02/18/20 digoxin 125 mcg (0.125 mg) tablet 1 tab PO DAILY 02/18/20 dutasteride 0.5 mg capsule 0.5 mg PO DAILY 02/18/20 furosemide 40 mg tablet 1 tab PO DAILY 02/18/20 gabapentin 100 mg capsule 100 mg PO BID 02/18/20 metoprolol succinate 25 mg tablet,extended release 24 hr 25 mg PO DAILY 02/18/20 potassium chloride 10 mEq capsule,extended release 20 meq PO DAILY 02/18/20 pyridostigmine bromide 60 mg tablet 60 mg PO TID 02/18/20 red yeast rice 600 mg capsule 1,200 mg PO DAILY 02/18/20 rosuvastatin 10 mg tablet 10 mg PO QHS 02/18/20 tamsulosin 0.4 mg capsule 0.4 mg PO DAILY 02/18/20 vit C,E,zinc,copper-[id number] 250 mg-lutein 5 mg-zeaxanthin 1 mg capsule 1 cap PO DAILY 02/18/20 Albuterol Inhaler [Ventolin Hfa] 1 - 2 puff INHALATION Q6H PRN PRN 03/09/20 Amoxicillin [Amoxil] 2,000 mg PO UD 03/09/20 Fluticasone/Salmeterol [Advair 500-50 Diskus] 1 ea IH BID 03/09/20 Multivit-Min/FA/Lycopen/Lutein [Centrum Silver Men Tablet] 1 ea PO DAILY 03/09/20 The patient's discharge medication list was reviewed for discrepancies and discrepancies were resolved.
--- NOTE | 2020-03-24 17:20 | PN_ITS ---
Patient Problems: Active and Suspected Problems (Last Updated 02/18/20 @ 13:53 by Nory Cote) Chronic lower back pain, sciatica (Acute) Subjective: Patient was seen and examined today, I talked with his vehicle safety inspector by phone today who stated that there was no clear guidelines on when to restart his Eliquis, his vehicle safety inspector did state that the patient is at low risk for an embolic event-approximately 5% risk according to the vehicle safety inspector. I told the patient that a good time to restart the Eliquis might be in 3 weeks. Patient agreed with this. - Physical Exam Vitals/I&O's: Vital Signs Temp Pulse Resp BP Pulse Ox 97.8 F 84 16 118/70 96 03/24/20 15:44 03/24/20 15:44 03/24/20 15:44 03/24/20 15:44 03/24/20 15:44 Oxygen Flow Rate (L/min) 6 Oxygen Delivery Method Room Air Weight: 108.9 kg Body Mass Index (BMI) 30.8 Intake and Output for Last 24 Hours 03/22/20 03/23/20 03/24/20 23:59 23:59 23:59 Intake Total 1369.5 / 2019.5 3092.25 / 3092.25 Output Total 248 / 663 1735 / 1735 Balance 1121.5 / 1356.5 1357.25 / 1357.25 General: Alert, Oriented x3, Cooperative, No apparent distress, Well developed HEENT: Atraumatic, PERRLA, EOMI, Normocephalic Oral: Moist Mucosa Neck: Supple, No JVD, Negative Carotid Bruits, Trachea Midline, Thyroid Normal Size and Texture Lungs: Clear to auscultation, Normal air movement, No rhonchi, No wheeze Cardiovascular: No murmurs, PMI Normal, Irregular Rate, No rub noted Abdomen: Bowel Sounds Present, Soft, Non Tender, Non-Distended Extremities: No clubbing, No cyanosis, No edema, Capillary Refill Less than 3 Seconds Skin: No rashes Neurological: Cranial nerves II-XII grossly intact, Neuro grossly intact, Sensory exam intact to light touch and pain Psych/Mental Status: Normal Affect, Appropriate, Alert and oriented to time, place, person, mood and affect Microbiology Past 72 Hours 03/22/20 09:55 Interface Orders SARS-CoV-2 Antigen (Rapid) - Final Laboratory Results 03/24/20 05:25: WBC 11.7 H, RBC 3.22 L, Hgb 10.4 L, Hct 33.3 L, MCV 103.4 H, MCH 32.3 H, MCHC 31.2 L, RDW Std Deviation 52.8 H, RDW Coeff of [place] 13.8, Plt Count 206, MPV 9.6, Immature Gran % (Auto) 0.500, Neut % (Auto) 86.9 H, Lymph % (Auto) 6.2 L, [place] % (Auto) 6.3, Eos % (Auto) 0.0, Baso % (Auto) 0.1, Absolute Neuts (auto) 10.1 H, Absolute Lymphs (auto) 0.72 L, Nucleated RBC % 0 03/24/20 05:25: Sodium 141, Potassium 4.6, Chloride 112 H, Carbon Dioxide 27.0, Anion Gap 2 L, BUN 15, Creatinine 0.96, Estim Creat Clear Calc 73.73, Est GFR (MDRD) Af Amer 98, Est GFR (MDRD) Non-Af 81, BUN/Creatinine Ratio 15.7, Glucose 114 H, Calcium 8.3 L 03/24/20 05:25: Hemoglobin A1c 5.9 H Medical Necessity - Tobacco Use Smoking Status: Never smoker Tobacco Use: Non-smoker Assessment/Plan All Active Problems (Last Updated 02/18/20 @ 13:53 by Nory Cote) Chronic lower back pain, sciatica (Acute) #1 chronic atrial fibrillation-patient's rate is currently controlled, again I advised him to wait 3 weeks before restarting his Eliquis. 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 Inpatient E&M: 29741 Subs Hosp L2
== END 2020-03-24 15:50 | disposition home or self-care (01) ==
LOC: SDC 14:43 → MS3 14:43
PROVIDERS: Anesthesiology; Internal Medicine; Admitting Provider Orthopaedic Surgery; PCP Family Medicine; Referring Provider Orthopaedic Surgery; Visit Provider Internal Medicine
PROC: (CPT 63030; principal; 2020-03-23 09:30)
DX: M51.16 Intervertebral disc disorders with radiculopathy, lumbar region (principal); M48.061 Spinal stenosis, lumbar region without neurogenic claudication; I48.20 Chronic atrial fibrillation, unspecified; G70.00 Myasthenia gravis without (acute) exacerbation; N40.0 Benign prostatic hyperplasia without lower urinary tract symptoms; J44.9 Chronic obstructive pulmonary disease, unspecified; E78.5 Hyperlipidemia, unspecified; Z79.899 Other long term (current) drug therapy; Z79.01 Long term (current) use of anticoagulants; Z79.51 Long term (current) use of inhaled steroids; Z20.828 Contact with and (suspected) exposure to other viral communicable diseases; Z79.52 Long term (current) use of systemic steroids; Z98.1 Arthrodesis status
CPT/HCPCS: 00670; 63047; 36415; 72020; 80048; 80076; 82962; 83036; 83735; 85025; 85610; 85730; 86703; 86704; 86705; 86706; 86708; 86709; 86803; 87081; 87340; 87426; 93005; 94640; 96361; 96365; 96366; 96375; 96376; 97162; 97166; 99218; 99251; C9803; J7120; A4216; G0378; G0379; G0463; J2405

== ENCOUNTER → 2020-09-29 16:34 | Outpatient (CLI) | payer MEDICARE, BC, SELFPAY ==
[2020-09-18 09:52] VITALS: BMI 30.8
--- NOTE | 2020-09-29 16:35 | MRI_ITS ---
STUDY: MRI LUMBAR SPINE WITHOUT CONTRAST REASON FOR EXAM: Male, 79 years old. L4-L5 laminectomy on 2019, worsening pain on the left side left leg pain TECHNIQUE: Standardized fat and water weighted pulse sequences were obtained in the sagittal and axial planes. COMPARISON: 26 February 2020 FINDINGS: Appearance is stable since February of current year. There is mild levoscoliosis. Lateral alignment is preserved. There is laminectomy decompression of L3-L4 and L4-L5 with pedicular screw fusion of L3-L4 and disc device. Refer to radiography or CT for evaluation of hardware. There are expected surgical changes along the posterior incision without fluid collections. T12-L1: Mildly degenerated endplates. Normal disc height, hydration and morphology. Normal bilateral facet joints. Normal central canal and bilateral lateral recesses. Normal bilateral intervertebral neural foramina. Normal lumbar lordosis. There is no substantial scoliosis. Normal conus medullaris that terminates at the L1-L2. Cauda equina is normal. L1-2: Normal endplates. Normal disc height, hydration and morphology. Mildly degenerated bilateral facet joints. Patent central canal and lateral recesses. Patent foramina bilaterally. L2-3: Normal endplates. Mildly decreased disc height, hydration and degenerative morphology. Degenerative bilateral facet joints. There is mild to moderate thecal sac stenosis. Lateral recesses and foramina are patent. L3-4: Surgically altered endplates with transdiscal fusion. Normal disc height, hydration and morphology. Degenerative bilateral facet joints. Normal central canal and bilateral lateral recesses. Normal bilateral intervertebral neural foramina. L4-5: Degeneration of L5 superior endplate with intravertebral herniation. Disc is degenerated with asymmetric left disc bulge.. Canal is fully decompressed and widely patent. Left lateral recess is stenotic. Remainder are moderately stenotic bilaterally. Right recess is patent. L5-S1: Normal endplates. Normal disc height, hydration and degenerative morphology. Normal bilateral facet joints. Normal central canal and bilateral lateral recesses. Moderate left and mild right foraminal stenosis. Normal visualized sacral ala. Normal visualized paraspinous soft tissue structures. MRI/Spine Lumbar (Routine) IMPRESSION: 1. Stable appearance since 6 months prior. 2. L3-L4 laminectomy with fully decompressed patent thecal sac. 3. 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 4. Left L4-L5 lateral recess, L5-S1 foraminal stenosis. Electronically Signed: London French MD at 21:05 EDT Tel , Service support ,
== END ==
PROVIDERS: PCP Family Medicine; Referring Provider Orthopaedic Surgery; Visit Provider Orthopaedic Surgery
DX: M54.17 Radiculopathy, lumbosacral region (principal)
CPT/HCPCS: 72148

== ENCOUNTER → 2023-11-03 | Outpatient (CLI) | payer MEDICARE, BC, SELFPAY ==
[2023-11-03 16:51] LABS: PSA,Total- Diagnostic 0.36 ng/mL (0.0-4.0)
== END | disposition home or self-care (01) ==
LOC: LAB 16:02
PROVIDERS: PCP Family Medicine; Referring Provider Urology; Visit Provider Urology
DX: N40.1 Benign prostatic hyperplasia with lower urinary tract symptoms (principal)
CPT/HCPCS: 36415; 84153

== ENCOUNTER → 2024-11-09 | Outpatient (CLI) | payer MEDICARE, BC, SELFPAY ==
--- OUTSIDE RECORDS SUMMARY | 2024-10-14 09:11 | XMS RPT_ITS ---
Author Name Auto Generated Organization OHIP Support Name Relationship Address Phone NIRALI BEVERLY Next of Kin Unknown + JOSE ANTONIO MEREDITH Next of Kin [address] [place] [address] [phone] NIRALI BEVERLY Next of Kin Unknown + JOSE ANTONIO MEREDITH Next of Kin [address] [place] [address] [phone] NIRALI BEVERLY Next of Kin Unknown + JOSE ANTONIO MEREDITH Next of Kin [address] [place] [address] [phone] NIRALI BEVERLY Next of Kin Unknown + JOSE ANTONIO MEREDITH Next of Kin [address] [place] [address] [phone] NIRALI BEVERLY Next of Kin Unknown + JOSE ANTONIO MEREDITH Next of Kin [address] [place] [address] [phone] NIRALI BEVERLY Next of Kin Unknown + JOSE ANTONIO MEREDITH Next of Kin [address] [place] [address] [phone] NIRALI BEVERLY Next of Kin Unknown + JOSE ANTONIO MEREDITH Next of Kin [address] [place] [address] [phone] AUSTYN MEREDITH Next of Kin Unknown + JOSE ANTONIO MEREDITH Next of Kin [address] [place] [address] [phone] RUSH, NIRALI Next of Kin Unknown + PESHO, JOSE ANTONIO Next of Kin [address] [place] [address] [phone] RUSH, NIRALI Next of Kin Unknown + PESHO, JOSE ANTONIO Next of Kin [address] [place] [address] [phone] PESHO, AUSTYN Next of Kin Unknown + PESHO, JOSE ANTONIO Next of Kin [address] [place] [address] [phone] RUSH, NIRALI Next of Kin Unknown + PESHO, JOSE ANTONIO Next of Kin [address] [place] [address] [phone] RUSH, NIRALI Next of Kin Unknown + PESHO, JOSE ANTONIO Next of Kin [address] [place] [address] [phone] RUSH, NIRALI Next of Kin Unknown + PESHO, JOSE ANTONIO Next of Kin [address] [place] [address] [phone] RUSH, NIRALI Next of Kin Unknown + PESHO, JOSE ANTONIO Next of Kin [address] [place] [address] [phone] RUSH, NIRALI Next of Kin Unknown + PESHO, JOSE ANTONIO Next of Kin [address] [address] [phone] RUSH, NIRALI Next of Kin Unknown + PESHO, JOSE ANTONIO Next of Kin [address] [address] [phone] RUSH, NIRALI Next of Kin Unknown + PESHO, JOSE ANTONIO Next of Kin [address] [place] [address] [phone] RUSH, NIRALI Next of Kin Unknown + JOSE ANTONIO MEREDITH Next of Kin [address] [place] [address] [phone] Care Team Providers Care Architectural Practice Manager Name Role Phone MARI RINCON Attending Unavail LILIAN Gaitan MD Primary Care Unavailable LILIAN RYDER MD Primary Care Unavailable LILIAN RYDER MD Attending Unavailable LILIAN RYDER MD Primary Care Unavailable LILIAN RYDER MD Attending Unavailable CHARLOTTE ALVARADO PA-C Attending Unavail able LILIAN RYDER MD Primary Care Unavailable MAURILIO PACK DO Attending Unavailable LILIAN RYDER MD Primary Care Unavailable LILIAN RYDER MD Attending Unavailable LILIAN RYDER MD Primary Care Unavailable LILIAN RYDER MD Primary Care Unavailable VENKATA WASHINGTON, MERLIN Attending Unavail able LILIAN RYDER MD Primary Care Unavailable MAURILIO PACK DO Attending Unavailable LILIAN RYDER MD Primary Care Unavailable LILIAN RYDER MD Attending Unavailable LILIAN RYDER MD Primary Care Unavailable LILIAN RYDER MD Attending Unavailable LILIAN RYDER MD Primary Care Unavailable VENKATA WASHINGTON, MERLIN Attending Unavail able LILIAN RYDER MD Primary Care Unavailable MAURILIO PACK DO Attending Unavailable FRANCO PERKINS MD Attending Unavailable LILIAN RYDER MD Primary Care Unavailable LILIAN RYDER MD Primary Care Unavailable ANNY LEONG MD Attending Unavailable LILIAN RYDER MD Attending Unavailable LILIAN RYDER MD Primary Care Unavailable MARI RINCON Attending Unavail able LILIAN RYDER MD Primary Care Unavailable LILIAN RYDER MD Primary Care Unavailable JORGE A BARAHONA MD Attending Unavailable PROBLEMS DATE TYPE CONDITION / CODE ATTENDING STATUS RONY RCE 01/05/2024 Admitting Diagnosis Pain in right knee / M25.561(ICD-10) ANNY LEONG MD Active [facility] MAIN PROCEDURES No Procedure Records Found RESULTS PRO Collected: 10/13/2024 1:37 PM Status: F Source: [facility] TYPE CODE TESTS RESULT OUT OF RANGE REFERENCE UNITS LAB PT(LOINC) Protime 12.3 9.0-14.4 seconds LAB INR(LOINC) PT International Ratio 1.1 Result Comment: The [employer] (CHEST, 1992, 102:312S- 25S) recommended therapeutic range for oral anticoagulant therapy is: LOW RISK: Prophylaxis of venous thrombosis INR: 2.0-3.0 Treatment of pulmonary embolism 2.0-3.0 Prevention of systemic embolism 2.0-3.0 HIGH RISK: Mechanical prosthetic valves 2.5-3.5 Performed By: #### PRO #### [address] [address] CBC Collected: 1:36 PM Status: F Source: [facility] TYPE CODE TESTS RESULT OUT OF RANGE REFERENCE UNITS LAB WBC(LOINC) WBC 3.8 Low 4.5-10.8 10 3/mcL LAB RBCCT(LOINC) RBC 3.09 Low 4.50-6.00 10 6/mcL LAB HGB(LOINC) Hgb 10.3 Low 13.0-17.5 G/dL LAB HCT(LOINC) Hct 30.5 Low 40.0-52.0 % LAB MCV(LOINC) MCV 98.9 81.0-100.0 fL LAB MCH(LOINC) MCH 33.3 High 27.0-33.0 pg LAB MCHC(LOINC) MCHC 33.6 32.0-36.0 G/dL LAB RDW(LOINC) RDW 18.2 High 11.5-15.5 % LAB PLT(LOINC) Platelet 208 150-450 10 3/mcL LAB MPV(LOINC) MPV 8.3 6.4-10.5 fL Performed By: #### ANEU, GFR , ADIFF, CBC, CMP #### [address] [address] .AUTO DIFF Collected: 10/13/2024 1:36 PM Status: F Source: [facility] TYPE CODE TESTS RESULT OUT OF RANGE REFERENCE UNITS LAB LIO(LOINC) Neutrophil % 65.9 50.0-75.0 % LAB LYM(LOINC) Lymphocyte % 20.0 20.0-40.0 % LAB MON(LOINC) Monocyte % 11.0 2.0-13.0 % LAB EO(LOINC) Eosinophil % 1.7 0.0-6.0 % LAB BAS(LOINC) Basophil % 1.4 0.0-2.5 % LAB ABLYM(LOINC) Lymphocyte, Absolute 0.8 Low 0.9-4.3 10 3/mcL LAB ANGEL(LOINC) Monocyte, Absolute 0.4 0.1-1.4 10 3/mcL LAB AEOS(LOINC) Eosinophil, Absolute 0.1 0.0-0.7 10 3/mcL LAB ABAS(LOINC) Basophil, Absolute 0.1 0.0-0.3 10 3/mcL Performed By: #### ANEU, GFR , ADIFF, CBC, CMP #### [address] [address] .NEUABS Collected: 1:36 PM Status: F Source: [facility] TYPE CODE TESTS RESULT OUT OF RANGE REFERENCE UNITS LAB ANEU(INC) Neutrophil, Absolute 2.5 2.3-8.1 10 3/mcL Performed By: #### ANEU, GFR , ADIFF, CBC, CMP #### [address] [address] CMP Collected: 10/13/2024 1:36 PM Status: F Source: [facility] TYPE CODE TESTS RESULT OUT OF RANGE REFERENCE UNITS LAB GLU(LOINC) Glucose Level 87 83-110 mg/dL LAB NA(LOINC) Sodium Level 143 136-145 mmol/L LAB K(LOINC) Potassium Level 4.7 3.5-5.1 mmol/L LAB CL(LOINC) Chloride 108 High 98-107 mmol/L LAB CO2(LOINC) CO2 29 23-31 mmol/L LAB EBAL(LOINC) Electrolyte Balance 6.0 4.0-15.0 mEq/L LAB BUN(LOINC) BUN 13 7-18 mg/dL LAB CRE(LOINC) Creatinine Lvl (s) 1.05 0.67-1.17 mg/dL LAB BC(LOINC) BUN/Creatinine Ratio 12 7-27 ratio LAB CA(LOINC) Calcium Lvl 9.3 8.4-10.2 mg/dL LAB PROT(LOINC) Total Protein 6.3 Low 6.4-8.2 G/dL LAB ALB(LOINC) Albumin Level 3.9 3.4-4.8 G/dL LAB GLB(LOINC) Globulin 2.4 Low 2.7-4.4 G/dL LAB AG(LOINC) A/G Ratio 1.6 1.1-2.5 ratio LAB BILT(LOINC) Bili Total 0.8 0.2-1.0 mg/dL Result Comment: Use of this assay is not recommended for patients undergoing treatment with eltrombopag due to the potential for falsely elevated results. LAB AP(LOINC) Alk Phos 77 40-135 U/L LAB AST(LOINC) AST/SGOT 16 10-40 U/L LAB ALT(LOINC) ALT/SGPT 17 16-63 U/L Performed By: #### ANEU, GFR , ADIFF, CBC, CMP #### [address] [address] .GFR Collected: 10/13/2024 1:36 PM Status: F Source: [facility] TYPE CODE TESTS RESULT OUT OF RANGE REFERENCE UNITS LAB eGFR(LOINC) Estimated Glomerular Filtration Rate 71 ml/min/1. 73sqm Result Comment: Stages of Chronic Kidney Disease (CKD) Stage Description eGFR(ml/min/1.73 sq.m.) CKD 1 Normal kidney function or >=90 normal kindney function with possible kidney damage (ex. Proteinuria) CKD 2 Kidney damage with mild loss 60-89 of kidney function CKD 3a Mild to moderate loss of kidney 45-59 function CKD 3b Moderate to severe loss of 30-44 of kindey function CKD 4 Severe loss of kidney function 15-29 CKD 5 Kidney failure <15 Note: (go live 2024) the eGFR calculation was updated to the 2020 CKD-EPI creatinine equation without a race factor to calculate the eGFR results. Performed By: #### ANEU, GFR , ADIFF, CBC, CMP #### [address] [address] RETO (AO) Collected: 09/30/2024 9:02 AM Status: F Source: [facility] TYPE CODE TESTS RESULT OUT OF RANGE REFERENCE UNITS LAB EDUARDO(LOINC) Reticulocytes, Auto 1.1 0.2-2.3 % LAB IRF(LOINC) Immature Retic Fraction 0.51 High 0.21-0.43 IRF Performed By: #### RETO #### [address] [address] FE Collected: 8:59 AM Status: F Source: [facility] TYPE [facility] TESTS RESULT OUT OF RANGE REFERENCE UNITS LAB FE(LOINC) Iron 61 Low 65-175 mcg/dL Performed By: #### FE, FERR #### [address] [address] #### B12 #### [address] [address] FERR Collected: 8:59 AM Status: F Source: [facility] TYPE [facility] TESTS RESULT OUT OF RANGE REFERENCE UNITS LAB FERR(LOINC) Ferritin 19.0 Low 26.0-388.0 ng/mL Performed By: #### FE, FERR #### [address] [address] #### B12 #### [address] [address] B12 Collected: 09/30/2024 8:59 AM Status: F Source: [facility] TYPE [facility] TESTS RESULT OUT OF RANGE REFERENCE UNITS LAB B12(LOINC) Vitamin B12 Lvl 633 211-911 pg/mL Performed By: #### FE, FERR #### [address] [address] #### B12 #### [address] [address] CBC Collected: 8:57 AM Status: F Source: [facility] TYPE CODE TESTS RESULT OUT OF RANGE REFERENCE UNITS LAB WBC(LOINC) WBC 3.9 Low 4.5-10.8 10 3/mcL LAB RBCCT(LOINC) RBC 3.19 Low 4.50-6.00 10 6/mcL LAB HGB(LOINC) Hgb 10.5 Low 13.0-17.5 G/dL LAB HCT(LOINC) Hct 31.5 Low 40.0-52.0 % LAB MCV(LOINC) MCV 98.6 81.0-100.0 fL LAB MCH(LOINC) MCH 33.0 27.0-33.0 pg LAB MCHC(LOINC) MCHC 33.5 32.0-36.0 G/dL LAB RDW(LOINC) RDW 17.6 High 11.5-15.5 % LAB PLT(LOINC) Platelet 199 150-450 10 3/mcL LAB MPV(LOINC) MPV 8.1 6.4-10.5 fL Performed By: #### CBC, GFR, ADIFF, CMP, ANEU, LIPID #### [address] [address] .AUTO DIFF Collected: 09/30/2024 8:57 AM Status: F Source: [facility] TYPE CODE TESTS RESULT OUT OF RANGE REFERENCE UNITS LAB LIO(LOINC) Neutrophil % 71.3 50.0-75.0 % LAB LYM(LOINC) Lymphocyte % 17.2 Low 20.0-40.0 % LAB MON(LOINC) Monocyte % 8.0 2.0-13.0 % LAB EO(LOINC) Eosinophil % 2.3 0.0-6.0 % LAB BAS(LOINC) Basophil % 1.2 0.0-2.5 % LAB ABLYM(LOINC) Lymphocyte, Absolute 0.7 Low 0.9-4.3 10 3/mcL LAB ANGEL(LOINC) Monocyte, Absolute 0.3 0.1-1.4 10 3/mcL LAB AEOS(LOINC) Eosinophil, Absolute 0.1 0.0-0.7 10 3/mcL LAB ABAS(LOINC) Basophil, Absolute 0.0 0.0-0.3 10 3/mcL Performed By: #### CBC, GFR, ADIFF, CMP, ANEU, LIPID #### [address] [address] .NEUABS Collected: 8:57 AM Status: F Source: [facility] TYPE CODE TESTS RESULT OUT OF RANGE REFERENCE UNITS LAB ANEU(LOINC) Neutrophil, Absolute 2.8 2.3-8.1 10 3/mcL Performed By: #### CBC, GFR, ADIFF, CMP, ANEU, LIPID #### [address] [place], [place] [address] CMP Collected: 09/30/2024 8:57 AM Status: F Source: [facility] TYPE CODE TESTS RESULT OUT OF RANGE REFERENCE UNITS LAB GLU(LOINC) Glucose Level 94 83-110 mg/dL LAB NA(LOINC) Sodium Level 142 136-145 mmol/L LAB K(LOINC) Potassium Level 4.3 3.5-5.1 mmol/L LAB CL(LOINC) Chloride 107 98-107 mmol/L LAB CO2(LOINC) CO2 27 23-31 mmol/L LAB EBAL(LOINC) Electrolyte Balance 8.0 4.0-15.0 mEq/L LAB BUN(LOINC) BUN 17 7-18 mg/dL LAB CRE(LOINC) Creatinine Lvl (s) 1.03 0.67-1.17 mg/dL LAB BC(LOINC) BUN/Creatinine Ratio 17 7-27 ratio LAB CA(LOINC) Calcium Lvl 9.6 8.4-10.2 mg/dL LAB PROT(LOINC) Total Protein 6.5 6.4-8.2 G/dL LAB ALB(LOINC) Albumin Level 3.7 3.4-4.8 G/dL LAB GLB(LOINC) Globulin 2.8 2.7-4.4 G/dL LAB AG(LOINC) A/G Ratio 1.3 1.1-2.5 ratio LAB BILT(LOINC) Bili Total 0.8 0.2-1.0 mg/dL Result Comment: Use of this assay is not recommended for patients undergoing treatment with eltrombopag due to the potential for falsely elevated results. LAB AP(LOINC) Alk Phos 83 40-135 U/L LAB AST(LOINC) AST/SGOT 17 10-40 U/L LAB ALT(LOINC) ALT/SGPT 17 16-63 U/L Performed By: #### CBC, GFR, ADIFF, CMP, ANEU, LIPID #### [place] [address] .GFR Collected: 09/30/2024 8:57 AM Status: F Source: [facility] TYPE CODE TESTS RESULT OUT OF RANGE REFERENCE UNITS LAB eGFR(LOINC) Estimated Glomerular Filtration Rate 73 ml/min/1. 73sqm Result Comment: Stages of Chronic Kidney Disease (CKD) Stage Description eGFR(ml/min/1.73 sq.m.) CKD 1 Normal kidney function or >=90 normal kindney function with possible kidney damage (ex. Proteinuria) CKD 2 Kidney damage with mild loss 60-89 of kidney function CKD 3a Mild to moderate loss of kidney 45-59 function CKD 3b Moderate to severe loss of 30-44 of kindey function CKD 4 Severe loss of kidney function 15-29 CKD 5 Kidney failure <15 Note: (go live 2024) the eGFR calculation was updated to the 2020 CKD-EPI creatinine equation without a race factor to calculate the eGFR results. Performed By: #### CBC, GFR, ADIFF, CMP, ANEU, LIPID #### [address] [place], [place] [address] LIPID Collected: 09/30/2024 8:57 AM Status: F Source: [facility] TYPE CODE TESTS RESULT OUT OF RANGE REFERENCE UNITS LAB CHOL(LOINC) Cholesterol 126 0-200 mg/dL Result Comment: Cholesterol Reference Interval: Less than 200 Desirable 200-239 Borderline high risk 240 and above High risk LAB TRIG(LOINC) Triglycerides 47 0-150 mg/dL Result Comment: Triglyceride Reference Interval: Less than 150 Normal 150-199 Borderline high risk 200-499 High risk 500 or higher Very high risk LAB HD(LOINC) HDL Cholesterol 60 40-60 mg/dL LAB LDL(LOINC) LDL Cholesterol 57 0-130 mg/dL Performed By: #### CBC, GFR, ADIFF, CMP, ANEU, LIPID #### [address] [place], [place] [address] CBC Collected: 10:00 AM Status: F Source: [facility] TYPE CODE TESTS RESULT OUT OF RANGE REFERENCE UNITS LAB WBC(LOINC) WBC 3.9 Low 4.5-10.8 10 3/mcL LAB RBCCT(LOINC) RBC 3.02 Low 4.50-6.00 10 6/mcL LAB HGB(LOINC) Hgb 10.0 Low 13.0-17.5 G/dL LAB HCT(LOINC) Hct 29.7 Low 40.0-52.0 % LAB MCV(LOINC) MCV 98.4 81.0-100.0 fL LAB MCH(LOINC) MCH 33.1 High 27.0-33.0 pg LAB MCHC(LOINC) MCHC 33.6 32.0-36.0 G/dL LAB RDW(LOINC) RDW 18.0 High 11.5-15.5 % LAB PLT(LOINC) Platelet 171 150-450 10 3/mcL LAB MPV(LOINC) MPV 8.1 6.4-10.5 fL Performed By: #### LIPID, AN EU, GFR, CBC, CMP, FERR, FE, ADIFF #### [address] [address] .AUTO DIFF Collected: 06/22/2024 10:00 AM Status: F Source: [facility] TYPE CODE TESTS RESULT OUT OF RANGE REFERENCE UNITS LAB LIO(LOINC) Neutrophil % 69.2 50.0-75.0 % LAB LYM(LOINC) Lymphocyte % 17.4 Low 20.0-40.0 % LAB MON(LOINC) Monocyte % 10.1 2.0-13.0 % LAB EO(LOINC) Eosinophil % 2.0 0.0-6.0 % LAB BAS(LOINC) Basophil % 1.3 0.0-2.5 % LAB ABLYM(LOINC) Lymphocyte, Absolute 0.7 Low 0.9-4.3 10 3/mcL LAB ANGEL(LOINC) Monocyte, Absolute 0.4 0.1-1.4 10 3/mcL LAB AEOS(LOINC) Eosinophil, Absolute 0.1 0.0-0.7 10 3/mcL LAB ABAS(LOINC) Basophil, Absolute 0.1 0.0-0.3 10 3/mcL Performed By: #### LIPID, AN EU, GFR, CBC, CMP, FERR, FE, ADIFF #### [address] [address] .NEUABS Collected: 10:00 AM Status: F Source: [facility] TYPE CODE TESTS RESULT OUT OF RANGE REFERENCE UNITS LAB ANEU(LOINC) Neutrophil, Absolute 2.7 2.3-8.1 10 3/mcL Performed By: #### LIPID, AN EU, GFR, CBC, CMP, FERR, FE, ADIFF #### [address] [address] FE Collected: 10:00 AM Status: F Source: [facility] TYPE CODE TESTS RESULT OUT OF RANGE REFERENCE UNITS LAB FE(LOINC) Iron 46 Low 65-175 mcg/dL Performed By: #### LIPID, AN EU, GFR, CBC, CMP, FERR, FE, ADIFF #### [address] [place], [place] [address] FERR Collected: 10:00 AM Status: F Source: [facility] TYPE CODE TESTS RESULT OUT OF RANGE REFERENCE UNITS LAB FERR(LOINC) Ferritin 21.0 Low 26.0-388.0 ng/mL Performed By: #### LIPID, AN EU, GFR, CBC, CMP, FERR, FE, ADIFF #### [address] [place], [place] [address] CMP Collected: 06/22/2024 10:00 AM Status: F Source: [facility] TYPE CODE TESTS RESULT OUT OF RANGE REFERENCE UNITS LAB GLU(LOINC) Glucose Level 101 83-110 mg/dL LAB NA(LOINC) Sodium Level 145 136-145 mmol/L LAB K(LOINC) Potassium Level 4.4 3.5-5.1 mmol/L LAB CL(LOINC) Chloride 109 High 98-107 mmol/L LAB CO2(LOINC) CO2 27 23-31 mmol/L LAB EBAL(LOINC) Electrolyte Balance 9.0 4.0-15.0 mEq/L LAB BUN(LOINC) BUN 15 7-18 mg/dL LAB CRE(LOINC) Creatinine Lvl (s) 0.94 0.67-1.17 mg/dL LAB BC(LOINC) BUN/Creatinine Ratio 16 7-27 ratio LAB CA(LOINC) Calcium Lvl 9.3 8.4-10.2 mg/dL LAB PROT(LOINC) Total Protein 6.3 Low 6.4-8.2 G/dL LAB ALB(LOINC) Albumin Level 4.1 3.4-4.8 G/dL LAB GLB(LOINC) Globulin 2.2 Low 2.7-4.4 G/dL LAB AG(LOINC) A/G Ratio 1.9 1.1-2.5 ratio LAB BILT(LOINC) Bili Total 0.8 0.2-1.0 mg/dL Result Comment: Use of this assay is not recommended for patients undergoing treatment with eltrombopag due to the potential for falsely elevated results. LAB AP(LOINC) Alk Phos 76 40-135 U/L LAB AST(LOINC) AST/SGOT 15 10-40 U/L LAB ALT(LOINC) ALT/SGPT 18 16-63 U/L Performed By: #### LIPID, AN EU, GFR, CBC, CMP, FERR, FE, ADIFF #### [facility] [address] [place], [place] [address] .GFR Collected: 10:00 AM Status: F Source: [facility] TYPE CODE TESTS RESULT OUT OF RANGE REFERENCE UNITS LAB eGFR(LOINC) Estimated Glomerular Filtration Rate 81 ml/min/1. 73sqm Result Comment: Stages of Chronic Kidney Disease (CKD) Stage Description eGFR(ml/min/1.73 sq.m.) CKD 1 Normal kidney function or >=90 normal kindney function with possible kidney damage (ex. Proteinuria) CKD 2 Kidney damage with mild loss 60-89 of kidney function CKD 3a Mild to moderate loss of kidney 45-59 function CKD 3b Moderate to severe loss of 30-44 of kindey function CKD 4 Severe loss of kidney function 15-29 CKD 5 Kidney failure <15 Note: (go live 2024) the eGFR calculation was updated to the 2020 CKD-EPI creatinine equation without a race factor to calculate the eGFR results. Performed By: #### LIPID, AN EU, GFR, CBC, CMP, FERR, FE, ADIFF #### [facility] [address] [place], [place] [address] LIPID Collected: 06/22/2024 10:00 AM Status: F Source: [facility] TYPE CODE TESTS RESULT OUT OF RANGE REFERENCE UNITS LAB CHOL(LOINC) Cholesterol 112 0-200 mg/dL Result Comment: Cholesterol Reference Interval: Less than 200 Desirable 200-239 Borderline high risk 240 and above High risk LAB TRIG(LOINC) Triglycerides 46 0-150 mg/dL Result Comment: Triglyceride Reference Interval: Less than 150 Normal 150-199 Borderline high risk 200-499 High risk 500 or higher Very high risk LAB HD(LOINC) HDL Cholesterol 61 High 40-60 mg/dL LAB LDL(LOINC) LDL Cholesterol 42 0-130 mg/dL Performed By: #### LIPID, AN EU, GFR, CBC, CMP, FERR, FE, ADIFF #### [address] [place], [place] [address] MRI SPINE CERVICAL W/O CONTRAST Observed: 05/31/2024 3:30 PM Status: F Source: [facility] ORIGINAL HISTORY: Neck pain, right upper extremity weakness COMPARISON: 30 October 2018 TECHNIQUE: 1. Sagittal T1-weighted images. 2. Sagittal T2-weighted and T2*-weighted images. 3. Axial T2-weighted and T2*-weighted images. FINDINGS: There is straightening of the normal cervical lordosis. There is grade 1 anterolisthesis at T1-T2. The individual vertebral bodies are intact. There is disc desiccation and disc space narrowing, most prominently at C7-T1. There is no abnormal signal within the cervical spinal cord. The visualized portions of the cord and base of the brain are unremarkable in appearance. Specific findings by level: C2-C3: There is mild spondylosis. There is moderate ligamentum flavum hypertrophy. There is mild stenosis. C3-C4: There is a moderate posterior disc bulge. There is moderate ligamentum flavum hypertrophy. There is mild right uncovertebral hypertrophy. There is mild facet hypertrophy. There is moderate to severe stenosis, with cord flattening and possibly minimal compression. There is neural foraminal narrowing on both sides. C4-C5: There is mild to moderate left and mild right uncovertebral hypertrophy. There is mild spondylosis. There is mild stenosis. There is neural foraminal narrowing on both sides. C5-C6: There is moderate uncovertebral hypertrophy. There is mild to moderate spondylosis. There is mild stenosis. C6-C7: There is mild spondylosis. C7-T1: There is mild spondylosis. There is right neural foraminal narrowing. 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 There is likely at least mild compression, but no abnormal signal is seen. This has significantly progressed since the comparison. Mild stenosis at C2-C3, C4-C5 and C5-C6, with various neural foraminal narrowing. This has at most mildly progressed since the comparison. Milder degenerative changes at the remaining levels, without significant stenosis. Interpreted by: Evin Garcia MD Preliminary Report By: Evin Garcia MD Electronically signed By Evin Garcia MD Dictated Date: 05/31/2024 2:37:30 PM Prelim Date: 05/31/2024 2:46:47 PM Sign Date: 05/31/2024 2:46:47 PM Ordering Provider: MARI SALAS MRI SPINE LUMBAR W/ + W/O CONTRAST Observed: 05/31/2024 2:45 PM Status: F Source: [facility] ORIGINAL HISTORY: Low back pain COMPARISON: 06 September 2015 TECHNIQUE: 1. Sagittal T1-weighted images. 2. Sagittal T2-weighted images with and without fat saturation. 3. Axial T1-weighted images. 4. Axial T2-weighted images. 5. Axial and sagittal T1-weighted images following uncomplicated administration of intravenous gadolinium contrast. FINDINGS: There are 5 lumbar type vertebral bodies for the purpose of this dictation. There is left convex scoliosis, not further characterized here. There is mild grade 1 retrolisthesis at L2-L3. There is an L3-L4 instrumented fusion and laminectomy. There is a mild compression deformity at L5, with less than 50% loss vertebral body height. There is disc desiccation and disc space narrowing, most prominently at L2-L3. The tip of the conus is at the L1-L2 level. There is no abnormal signal within the visualized spinal cord. There is no abnormal enhancement of the cord or its coverings. Specific findings by level: L2-L3: There is mild spondylosis. There is mild facet and ligamentum flavum hypertrophy. There is a possible small facet synovial cyst on the left, somewhat obscured by metallic artifact. There is mild stenosis. L3-L4: There is mild facet hypertrophy. L4-L5: There is mild to moderate spondylosis. There is mild facet hypertrophy. There is mild neural foraminal narrowing on both sides. L5-S1: There is mild spondylosis. There is moderate left and mild right facet hypertrophy. IMPRESSION: Interval L3-L4 fusion and laminectomy. Interval resolution of L3-L4 stenosis. Mild degenerative changes at the remaining levels with superimposed scoliosis, both progressed since the comparison. There is mild stenosis at L2-L3, new or progressed since the comparison. Interpreted by: Evin Garcia MD Preliminary Report By: Evin Garcia MD Electronically signed By Evin Garcia MD Dictated Date: 05/31/2024 3:50:04 PM Prelim Date: 05/31/2024 4:04:20 PM Sign Date: 05/31/2024 4:04:20 PM Ordering Provider: MARI SALAS CBC Collected: 12:49 PM Status: F Source: [facility] TYPE CODE TESTS RESULT OUT OF RANGE REFERENCE UNITS LAB WBC(LOINC) WBC 3.8 Low 4.5-10.8 10 3/mcL LAB RBCCT(LOINC) RBC 2.97 Low 4.50-6.00 10 6/mcL LAB HGB(LOINC) Hgb 9.7 Low 13.0-17.5 G/dL LAB HCT(LOINC) Hct 28.7 Low 40.0-52.0 % LAB MCV(LOINC) MCV 96.7 81.0-100.0 fL LAB MCH(LOINC) MCH 32.5 27.0-33.0 pg LAB MCHC(LOINC) MCHC 33.6 32.0-36.0 G/dL LAB RDW(LOINC) RDW 18.5 High 11.5-15.5 % LAB PLT(LOINC) Platelet 203 150-450 10 3/mcL LAB MPV(LOINC) MPV 7.8 6.4-10.5 fL Performed By: #### ANEU, TIFFANI FF, CMP, GFR, CBC #### [place] [address] .AUTO DIFF Collected: 04/19/2024 12:49 PM Status: F Source: [facility] TYPE CODE TESTS RESULT OUT OF RANGE REFERENCE UNITS LAB LIO(LOINC) Neutrophil % 68.6 50.0-75.0 % LAB LYM(LOINC) Lymphocyte % 18.4 Low 20.0-40.0 % LAB MON(LOINC) Monocyte % 9.7 2.0-13.0 % LAB EO(LOINC) Eosinophil % 2.0 0.0-7.0 % LAB BAS(LOINC) Basophil % 1.3 0.0-2.5 % LAB ABLYM(LOINC) Lymphocyte, Absolute 0.7 Low 0.9-4.3 10 3/mcL LAB ANGEL(LOINC) Monocyte, Absolute 0.4 0.1-1.4 10 3/mcL LAB AEOS(LOINC) Eosinophil, Absolute 0.1 0.0-0.7 10 3/mcL LAB ABAS(LOINC) Basophil, Absolute 0.0 0.0-0.2 10 3/mcL Performed By: #### ANEU, TIFFANI FF, CMP, GFR, CBC #### [place] [address] [place], [place] [address] .NEUABS Collected: 12:49 PM Status: F Source: [facility] TYPE CODE TESTS RESULT OUT OF RANGE REFERENCE UNITS LAB ANEU(LOINC) Neutrophil, Absolute 2.6 2.3-8.1 10 3/mcL Performed By: #### ANEU, TIFFANI FF, CMP, GFR, CBC #### [place] [address] [place], [place] [address] CMP Collected: 04/19/2024 12:49 PM Status: F Source: [facility] TYPE CODE TESTS RESULT OUT OF RANGE REFERENCE UNITS LAB GLU(LOINC) Glucose Level 91 83-110 mg/dL LAB NA(LOINC) Sodium Level 139 136-145 mmol/L LAB K(LOINC) Potassium Level 3.9 3.5-5.1 mmol/L LAB CL(LOINC) Chloride 106 98-107 mmol/L LAB CO2(LOINC) CO2 28 23-31 mmol/L LAB EBAL(LOINC) Electrolyte Balance 5.0 4.0-15.0 mEq/L LAB BUN(LOINC) BUN 12 7-18 mg/dL LAB CRE(LOINC) Creatinine Lvl (s) 0.98 0.70-1.30 mg/dL Result Comment: Testing perf ormed on Siemens Dimension EXL analyzer using a modified kinetic Samir technique. LAB BC(LOINC) BUN/Creatinine Ratio 12 7-27 ratio LAB CA(LOINC) Calcium Lvl 9.1 8.4-10.2 mg/dL LAB PROT(LOINC) Total Protein 6.0 Low 6.4-8.2 G/dL LAB ALB(LOINC) Albumin Level 3.7 3.4-4.8 G/dL LAB GLB(LOINC) Globulin 2.3 1.5-3.8 G/dL LAB AG(LOINC) A/G Ratio 1.6 1.1-2.5 ratio LAB BILT(LOINC) Bili Total 0.8 0.2-1.0 mg/dL Result Comment: Use of this assay is not recommended for patients undergoing treatment with eltrombopag due to the potential for falsely elevated results. LAB AP(LOINC) Alk Phos 74 40-135 U/L LAB AST(LOINC) AST/SGOT 16 10-40 U/L LAB ALT(LOINC) ALT/SGPT 14 Low 16-63 U/L Performed By: #### ANEU, TIFFANI FF, CMP, GFR, CBC #### [address] [address] .GFR Collected: 12:49 PM Status: F Source: [facility] TYPE CODE TESTS RESULT OUT OF RANGE REFERENCE UNITS LAB eGFR(LOINC) Estimated Glomerular Filtration Rate 77 ml/min/1. 73sqm Result Comment: Stages of Chronic Kidney Disease (CKD) Stage Description eGFR(ml/min/1.73 sq.m.) CKD 1 Normal kidney function or >=90 normal kindney function with possible kidney damage (ex. Proteinuria) CKD 2 Kidney damage with mild loss 60-89 of kidney function CKD 3a Mild to moderate loss of kidney 45-59 function CKD 3b Moderate to severe loss of 30-44 of kindey function CKD 4 Severe loss of kidney function 15-29 CKD 5 Kidney failure <15 Note: (go live 2024) the eGFR calculation was updated to the 2020 CKD-EPI creatinine equation without a race factor to calculate the eGFR results. Performed By: #### ANEU, TIFFANI FF, CMP, GFR, CBC #### [address] [address] CBC Collected: 5 1:21 PM Status: F Source: [facility] TYPE CODE TESTS RESULT OUT OF RANGE REFERENCE UNITS LAB WBC(LOINC) WBC 4.6 4.5-10.8 10 3/mcL LAB RBCCT(LOINC) RBC 3.02 Low 4.50-6.00 10 6/mcL LAB HGB(LOINC) Hgb 9.7 Low 13.0-17.5 G/dL LAB HCT(LOINC) Hct 29.3 Low 40.0-52.0 % LAB MCV(LOINC) MCV 97.1 81.0-100.0 fL LAB MCH(LOINC) MCH 32.2 27.0-33.0 pg LAB MCHC(LOINC) MCHC 33.2 32.0-36.0 G/dL LAB RDW(LOINC) RDW 17.1 High 11.5-15.5 % LAB PLT(LOINC) Platelet 202 150-450 10 3/mcL LAB MPV(LOINC) MPV 7.9 6.4-10.5 fL Performed By: #### FE, RETO, ADIFF, IBC, FERR, ANEU, CBC #### [facility] [address] [place], [place] [address] RETO (AO) Collected: 02/13/2024 1:21 PM Status: F Source: [facility] TYPE CODE TESTS RESULT OUT OF RANGE REFERENCE UNITS LAB EDUARDO(LOINC) Reticulocytes, Auto 1.2 0.2-2.3 % LAB IRF(LOINC) Immature Retic Fraction 0.41 0.20-0.46 IRF Performed By: #### FE, RETO, ADIFF, IBC, FERR, ANEU, CBC #### [place] [address] [place], [place] [address] .AUTO DIFF Collected: 02/13/2024 1:21 PM Status: F Source: [facility] TYPE CODE TESTS RESULT OUT OF RANGE REFERENCE UNITS LAB LIO(LOINC) Neutrophil % 79.1 High 50.0-75.0 % LAB LYM(LOINC) Lymphocyte % 10.8 Low 20.0-40.0 % LAB MON(LOINC) Monocyte % 8.2 2.0-13.0 % LAB EO(LOINC) Eosinophil % 1.2 0.0-7.0 % LAB BAS(LOINC) Basophil % 0.7 0.0-2.5 % LAB ABLYM(LOINC) Lymphocyte, Absolute 0.5 Low 0.9-4.3 10 3/mcL LAB ANGEL(LOINC) Monocyte, Absolute 0.4 0.1-1.4 10 3/mcL LAB AEOS(LOINC) Eosinophil, Absolute 0.1 0.0-0.7 10 3/mcL LAB ABAS(LOINC) Basophil, Absolute 0.0 0.0-0.2 10 3/mcL Performed By: #### FE, RETO, ADIFF, IBC, FERR, ANEU, CBC #### [address] [address] .NEUABS Collected: 1:21 PM Status: F Source: [facility] TYPE CODE TESTS RESULT OUT OF RANGE REFERENCE UNITS LAB ANEU(LOINC) Neutrophil, Absolute 3.6 2.3-8.1 10 3/mcL Performed By: #### FE, RETO, ADIFF, IBC, FERR, ANEU, CBC #### [place] [address] FERR Collected: 1:21 PM Status: F Source: [facility] CODE TESTS RESULT OUT OF RANGE REFERENCE UNITS LAB FERR(LOINC) Ferritin 23.0 Low 26.0-388.0 ng/mL Performed By: #### FE, RETO, ADIFF, IBC, FERR, ANEU, CBC #### [place] [address] FE Collected: 1:21 PM Status: F Source: [facility] TESTS RESULT OUT OF RANGE REFERENCE UNITS LAB FE(LOINC) Iron 44 Low 65-175 mcg/dL Performed By: #### FE, RETO, ADIFF, IBC, FERR, ANEU, CBC #### [address] [address] IBC Collected: 1:21 PM Status: F Source: [facility] TYPE [facility] TESTS RESULT OUT OF RANGE REFERENCE UNITS LAB IBC(LOINC) TIBC 347 250-450 mcg/dL Performed By: #### FE, RETO, ADIFF, IBC, FERR, ANEU, CBC #### [place] [address] SYNCT Collected: 01/05/2024 8:36 AM Status: F Source: [facility] TYPE CODE TESTS RESULT OUT OF RANGE REFERENCE UNITS LAB SCLAR(LOINC) Clarity (synovial) Hazy LAB SCOLR(LOINC) Color (synovial) Yellow LAB SFWBC(LOINC) White Blood Cells (synovial) 118 0-199 /mm3 LAB SCELL(LOINC) Cells Counted (synovial) 100 LAB SFNEU(LOINC) Neutrophil % (synovial) 4 0-24 % LAB SFLYM(LOINC) Lymphocyte % (synovial) 47 % LAB SFMON(LOINC) Mononuclear Cell % (synovial) 49 % Performed By: #### SYNCT ### # [place] [address] MISCNB Collected: 01/05/2024 8:36 AM Status: F Source: [facility] Order Comment: Alpha Defensi n (Synovial Fluid) ALDEF TYPE CODE TESTS RESULT OUT OF RANGE REFERENCE UNITS LAB MISCNB(LOINC) Misc. lab Send Out (Non Blood) See Comments Result Comment: Complete ref erence lab report scanned to EMR. Performed By: #### MISCNB ## ## [place] [address] CBF Observed: 01/05/2024 8:36 AM Status: F Source: [facility] . MICRO - Microbiology PROCEDURE: Culture Body Fluid with Gram Stain [*1] SOURCE: Body Fluid, BODY SITE: Miscellaneous COLLECTED DATE/TIME: 01/05/2024 08:36 EST RECEIVED DATE/TIME: 01/05/2024 10:41 EST START DATE/TIME: 01/05/2024 10:45 EST FREE TEXT SOURCE: right knee FINAL REPORTS Final Report [] Verified Date/Time/Personnel: 01/12/2024 07:24 EST No aerobes or anaerobes isolated at 7 days. PRELIMINARY REPORTS Preliminary Report [] Verified Date/Time/Personnel: 01/06/2024 10:48 EST No growth to date Preliminary Report [] Verified Date/Time/Personnel: 01/05/2024 11:59 EST Culture has been received in lab and is no growth to date. Routine cultures are held for 5 days. STAINS GS [] Verified Date/Time/Personnel: 01/05/2024 13:42 EST Sedimented 4+ Polymorphonuclear cells 2+ Mononuclear cells No organisms seen. Performing Locations *1: This test was performed at: [facility], [address] [place] [address], [phone]- , CMP Collected: 01/01/2024 8:07 AM Status: F Source: [facility] TYPE CODE TESTS RESULT OUT OF RANGE REFERENCE UNITS LAB GLU(LOINC) Glucose Level 101 83-110 mg/dL LAB NA(LOINC) Sodium Level 142 136-145 mmol/L LAB K(LOINC) Potassium Level 4.3 3.5-5.1 mmol/L LAB CL(LOINC) Chloride 107 98-107 mmol/L LAB CO2(LOINC) CO2 29 23-31 mmol/L LAB EBAL(LOINC) Electrolyte Balance 6.0 4.0-15.0 mEq/L LAB BUN(LOINC) BUN 15 7-18 mg/dL LAB CRE(LOINC) Creatinine Lvl (s) 1.04 0.70-1.30 mg/dL Result Comment: Testing perf ormed on [employer] Dimension EXL analyzer using a modified kinetic Samir technique. LAB BC(LOINC) BUN/Creatinine Ratio 14 7-27 ratio LAB CA(LOINC) Calcium Lvl 9.6 8.4-10.2 mg/dL LAB PROT(LOINC) Total Protein 6.2 Low 6.4-8.2 G/dL LAB ALB(LOINC) Albumin Level 3.9 3.4-4.8 G/dL LAB GLB(LOINC) Globulin 2.3 G/dL LAB AG(LOINC) A/G Ratio 1.7 1.1-2.5 ratio LAB BILT(LOINC) Bili Total 0.8 0.2-1.0 mg/dL Result Comment: Use of this assay is not recommended for patients undergoing treatment with eltrombopag due to the potential for falsely elevated results. LAB AP(LOINC) Alk Phos 79 40-135 U/L LAB AST(LOINC) AST/SGOT 16 10-40 U/L LAB ALT(LOINC) ALT/SGPT 19 16-63 U/L Performed By: #### LIPID, CM P, GFR #### [address] [address] .GFR Collected: 8:07 AM Status: F Source: [facility] TYPE CODE TESTS RESULT OUT OF RANGE REFERENCE UNITS LAB GFRAA(LOINC) GFR 83 ml/min/1. 73sqm Result Comment: GFR Population mean for , Non- Americans Ages 20-29 = 116 mL/min/1.73 sq.m. Ages 30-39 = 107 mL/min/1.73 sq.m. Ages 40-49 = 99 mL/min/1.73 sq.m. Ages 50-59 = 93 mL/min/1.73 sq.m. Ages 60-69 = 85 mL/min/1.73 sq.m. Ages 70+ = 75 mL/min/1.73 sq.m. Chronic Kidney Disease: Less than 60 mL/min/1.73 square meters End Stage Renal Disease: Less than 15 mL/min/1.73 square meters LAB GFRNO(LOINC) GFR Non- 68 ml/min/1. 73sqm Result Comment: GFR Population mean for , Non- Americans Ages 20-29 = 116 mL/min/1.73 sq.m. Ages 30-39 = 107 mL/min/1.73 sq.m. Ages 40-49 = 99 mL/min/1.73 sq.m. Ages 50-59 = 93 mL/min/1.73 sq.m. Ages 60-69 = 85 mL/min/1.73 sq.m. Ages 70+ = 75 mL/min/1.73 sq.m. Chronic Kidney Disease: Less than 60 mL/min/1.73 square meters End Stage Renal Disease: Less than 15 mL/min/1.73 square meters Performed By: #### LIPID, CM P, GFR #### [address] [address] LIPID Collected: 01/01/2024 8:07 AM Status: F Source: [facility] TYPE CODE TESTS RESULT OUT OF RANGE REFERENCE UNITS LAB CHOL(LOINC) Cholesterol 130 0-200 mg/dL Result Comment: Cholesterol Reference Interval: Less than 200 Desirable 200-239 Borderline high risk 240 and above High risk LAB TRIG(LOINC) Triglycerides 65 0-150 mg/dL Result Comment: Triglyceride Reference Interval: Less than 150 Normal 150-199 Borderline high risk 200-499 High risk 500 or higher Very high risk LAB HD(LOINC) HDL Cholesterol 62 High 40-60 mg/dL LAB LDL(LOINC) LDL Cholesterol 55 0-130 mg/dL Performed By: #### LIPID, CM P, GFR #### [address] [address] CBC Collected: 4:01 PM Status: F Source: [facility] TYPE CODE TESTS RESULT OUT OF RANGE REFERENCE UNITS LAB WBC(LOINC) WBC 3.7 Low 4.5-10.8 10 3/mcL LAB RBCCT(LOINC) RBC 2.83 Low 4.50-6.00 10 6/mcL LAB HGB(LOINC) Hgb 9.6 Low 13.0-17.5 G/dL LAB HCT(LOINC) Hct 28.2 Low 40.0-52.0 % LAB MCV(LOINC) MCV 99.6 81.0-100.0 fL LAB MCH(LOINC) MCH 33.9 High 27.0-33.0 pg LAB MCHC(LOINC) MCHC 34.0 32.0-36.0 G/dL LAB RDW(LOINC) RDW 15.9 High 11.5-15.5 % LAB PLT(LOINC) Platelet 186 150-450 10 3/mcL LAB MPV(LOINC) MPV 7.9 6.4-10.5 fL Performed By: #### ADIFF, CB C, CMP, GFR, ANEU #### [address] [address] .AUTO DIFF Collected: 12/30/2023 4:01 PM Status: F Source: [facility] TYPE CODE TESTS RESULT OUT OF RANGE REFERENCE UNITS LAB LIO(LOINC) Neutrophil % 65.9 50.0-75.0 % LAB LYM(LOINC) Lymphocyte % 22.0 20.0-40.0 % LAB MON(LOINC) Monocyte % 9.1 2.0-13.0 % LAB EO(LOINC) Eosinophil % 1.8 0.0-7.0 % LAB BAS(LOINC) Basophil % 1.2 0.0-2.5 % LAB ABLYM(LOINC) Lymphocyte, Absolute 0.8 Low 0.9-4.3 10 3/mcL LAB ANGEL(LOINC) Monocyte, Absolute 0.3 0.1-1.4 10 3/mcL LAB AEOS(LOINC) Eosinophil, Absolute 0.1 0.0-0.7 10 3/mcL LAB ABAS(LOINC) Basophil, Absolute 0.0 0.0-0.2 10 3/mcL Performed By: #### SALTY, CB C, CMP, GFR, ANEU #### [place] [address] [place], [place] [address] .NEUABS Collected: 4:01 PM Status: F Source: [facility] TYPE CODE TESTS RESULT OUT OF RANGE REFERENCE UNITS LAB ANEU(LOINC) Neutrophil, Absolute 2.5 2.3-8.1 10 3/mcL Performed By: #### ADPATSY, CB C, CMP, GFR, ANEU #### [place] [address] [place], [place] [address] CMP Collected: 12/30/2023 4:01 PM Status: F Source: [facility] TYPE CODE TESTS RESULT OUT OF RANGE REFERENCE UNITS LAB GLU(LOINC) Glucose Level 120 High 83-110 mg/dL LAB NA(LOINC) Sodium Level 142 136-145 mmol/L LAB K(LOINC) Potassium Level 4.3 3.5-5.1 mmol/L LAB CL(LOINC) Chloride 105 98-107 mmol/L LAB CO2(LOINC) CO2 30 23-31 mmol/L LAB EBAL(LOINC) Electrolyte Balance 7.0 4.0-15.0 mEq/L LAB BUN(LOINC) BUN 17 7-18 mg/dL LAB CRE(LOINC) Creatinine Lvl (s) 1.16 0.70-1.30 mg/dL Result Comment: Testing perf ormed on Siemens Dimension EXL analyzer using a modified kinetic Samir technique. LAB BC(LOINC) BUN/Creatinine Ratio 15 7-27 ratio LAB CA(LOINC) Calcium Lvl 9.4 8.4-10.2 mg/dL LAB PROT(LOINC) Total Protein 6.1 Low 6.4-8.2 G/dL LAB ALB(LOINC) Albumin Level 3.8 3.4-4.8 G/dL LAB GLB(LOINC) Globulin 2.3 G/dL LAB AG(LOINC) A/G Ratio 1.7 1.1-2.5 ratio LAB BILT(LOINC) Bili Total 0.6 0.2-1.0 mg/dL Result Comment: Use of this assay is not recommended for patients undergoing treatment with eltrombopag due to the potential for falsely elevated results. LAB AP(LOINC) Alk Phos 78 40-135 U/L LAB AST(LOINC) AST/SGOT 17 10-40 U/L LAB ALT(LOINC) ALT/SGPT 20 16-63 U/L Performed By: #### SALTY, CB C, CMP, GFR, ANEU #### [address] [address] .GFR Collected: 4 4:01 PM Status: F Source: [facility] TYPE CODE TESTS RESULT OUT OF RANGE REFERENCE UNITS LAB GFRAA(LOINC) GFR 73 ml/min/1. 73sqm Result Comment: GFR Population mean for , Non- Americans Ages 20-29 = 116 mL/min/1.73 sq.m. Ages 30-39 = 107 mL/min/1.73 sq.m. Ages 40-49 = 99 mL/min/1.73 sq.m. Ages 50-59 = 93 mL/min/1.73 sq.m. Ages 60-69 = 85 mL/min/1.73 sq.m. Ages 70+ = 75 mL/min/1.73 sq.m. Chronic Kidney Disease: Less than 60 mL/min/1.73 square meters End Stage Renal Disease: Less than 15 mL/min/1.73 square meters LAB GFRNO(LOINC) GFR Non- 60 ml/min/1. 73sqm Result Comment: GFR Population mean for , Non- Americans Ages 20-29 = 116 mL/min/1.73 sq.m. Ages 30-39 = 107 mL/min/1.73 sq.m. Ages 40-49 = 99 mL/min/1.73 sq.m. Ages 50-59 = 93 mL/min/1.73 sq.m. Ages 60-69 = 85 mL/min/1.73 sq.m. Ages 70+ = 75 mL/min/1.73 sq.m. Chronic Kidney Disease: Less than 60 mL/min/1.73 square meters End Stage Renal Disease: Less than 15 mL/min/1.73 square meters Performed By: #### SALTY, CB C, CMP, GFR, ANEU #### [address] [address] CBC Collected: 12:13 PM Status: F Source: [facility] TYPE CODE TESTS RESULT OUT OF RANGE REFERENCE UNITS LAB WBC(LOINC) WBC 4.2 Low 4.5-10.8 10 3/mcL LAB RBCCT(LOINC) RBC 2.84 Low 4.50-6.00 10 6/mcL LAB HGB(LOINC) Hgb 10.0 Low 13.0-17.5 G/dL LAB HCT(LOINC) Hct 28.7 Low 40.0-52.0 % LAB MCV(LOINC) MCV 100.9 High 81.0-100.0 fL LAB MCH(LOINC) MCH 35.0 High 27.0-33.0 pg LAB MCHC(LOINC) MCHC 34.7 32.0-36.0 G/dL LAB RDW(LOINC) RDW 16.3 High 11.5-15.5 % LAB PLT(LOINC) Platelet 162 150-450 10 3/mcL LAB MPV(LOINC) MPV 8.3 6.4-10.5 fL Performed By: #### CBC, FERR , RETO, FE, ESR, ADIFF, IBC, ANEU #### [address] [address] #### B12 #### [address] [address] RETO (AO) Collected: 11/14/2023 12:13 PM Status: F Source: [facility] TYPE CODE TESTS RESULT OUT OF RANGE REFERENCE UNITS LAB EDUARDO(LOINC) Reticulocytes, Auto 0.8 0.2-2.3 % LAB IRF(LOINC) Immature Retic Fraction 0.48 High 0.20-0.46 IRF Performed By: #### CBC, FERR , RETO, FE, ESR, ADIFF, IBC, ANEU #### [address] [address] #### B12 #### [address] [address] .AUTO DIFF Collected: 11/14/2023 12:13 PM Status: F Source: [facility] TYPE CODE TESTS RESULT OUT OF RANGE REFERENCE UNITS LAB LIO(LOINC) Neutrophil % 67.3 50.0-75.0 % LAB LYM(LOINC) Lymphocyte % 18.1 Low 20.0-40.0 % LAB MON(LOINC) Monocyte % 10.4 2.0-13.0 % LAB EO(LOINC) Eosinophil % 2.8 0.0-7.0 % LAB BAS(LOINC) Basophil % 1.4 0.0-2.5 % LAB ABLYM(LOINC) Lymphocyte, Absolute 0.8 Low 0.9-4.3 10 3/mcL LAB ANGEL(LOINC) Monocyte, Absolute 0.4 0.1-1.4 10 3/mcL LAB AEOS(LOINC) Eosinophil, Absolute 0.1 0.0-0.7 10 3/mcL LAB ABAS(LOINC) Basophil, Absolute 0.1 0.0-0.2 10 3/mcL Performed By: #### CBC, FERR , RETO, FE, ESR, ADIFF, IBC, ANEU #### [address] [address] #### B12 #### [address] [address] .NEUABS Collected: 12:13 PM Status: F Source: [facility] TYPE CODE TESTS RESULT OUT OF RANGE REFERENCE UNITS LAB ANEU(LOINC) Neutrophil, Absolute 2.9 2.3-8.1 10 3/mcL Performed By: #### CBC, FERR , RETO, FE, ESR, ADIFF, IBC, ANEU #### [address] [address] #### B12 #### [address] [address] ESR Collected: 11/14/2023 12:13 PM Status: F Source: [facility] TYPE CODE TESTS RESULT OUT OF RANGE REFERENCE UNITS LAB ESR(LOINC) Erythrocyte Sed Rate <1 0-20 mm/hr Performed By: #### CBC, FERR , RETO, FE, ESR, ADIFF, IBC, ANEU #### [address] [address] #### B12 #### [place] [address] FERR Collected: 12:13 PM Status: F Source: [facility] TYPE CODE TESTS RESULT OUT OF RANGE REFERENCE UNITS LAB FERR(LOINC) Ferritin 28.0 26.0-388.0 ng/mL Performed By: #### CBC, FERR , RETO, FE, ESR, ADIFF, IBC, ANEU #### [address] [address] #### B12 #### [place] [address] FE Collected: 12:13 PM Status: F Source: [facility] TYPE CODE TESTS RESULT OUT OF RANGE REFERENCE UNITS LAB FE(LOINC) Iron 41 Low 65-175 mcg/dL Performed By: #### CBC, FERR , RETO, FE, ESR, ADIFF, IBC, ANEU #### [address] [address] #### B12 #### [place] [address] IBC Collected: 12:13 PM Status: F Source: [facility] TYPE CODE TESTS RESULT OUT OF RANGE REFERENCE UNITS LAB IBC(LOINC) TIBC 312 250-450 mcg/dL Performed By: #### CBC, FERR , RETO, FE, ESR, ADIFF, IBC, ANEU #### [address] [address] #### B12 #### [place] [address] B12 Collected: 12:13 PM Status: F Source: [facility] TYPE CODE TESTS RESULT OUT OF RANGE REFERENCE UNITS LAB B12(LOINC) Vitamin B12 Lvl 349 211-911 pg/mL Performed By: #### CBC, FERR , RETO, FE, ESR, ADIFF, IBC, ANEU #### [address] [address] #### B12 #### [address] [place] [address] ALLERGIES No Allergies Records Found ENCOUNTERS ADMIT/DISCHARGE ACCOUNT NUMBER ADMITTING ENCOUNTER CLASS LOC ATION SOURCE 10/14/2024/ 5 [id number] Ambulatory ABuilding:[place]: 0001Bed: [facility] 10/13/2024/ 5 [id number] [place] [facility] 10/13/2024/ 5 [id number] [place] [facility] 09/30/2024/ 5 [id number] [place] [facility] [facility] 08/02/2024/ 5 [id number] [place] [facility] 06/22/2024/ 5 [id number] [place] [facility] [facility] 06/07/2024/ 5 [id number] Ambulatory [facility]Building:[facility] 05/31/2024/ 5 [id number] [place] [facility] 05/24/2024/ 5 [id number] Ambulatory ABuilding:[facility] 04/19/2024/ 5 [id number] [place] [facility] 04/01/2024/ 5 [id number] Ambulatory ABuilding:[facility] 02/25/2024/ 5 [id number] [place] [facility] 02/13/2024/ 5 [id number] [place] [facility] 01/05/2024/ 4 [id number] Ambulatory ABuilding:[facility] 01/01/2024/ 4 [id number] [place] [facility] 12/30/2023/ 4 [id number] [place] [facility] 11/14/2023/ 4 [id number] [facility] PAYERS ENCOUNTER GUARANTOR PAYER SUBSCRIBER SOURCE 10/14/2024 TERRANCE Metzger PESHODOB: [id number] [place] [email or web address]: (HP) Primary Insurance:MEDICARE PART B INSCOPolicy Number: [id number] Date:7159-09-56Jzri Name:[facility] [address] [place] [address]CV: TERRANCE Metzger PESHODOB: [id number] [place] [id number]: (HP) (WP) [facility] 10/14/2024 Secondary Insurance:[employer] INSCOPolicy Number: [id number] Date:9474-22-15Okzv Name:[facility] [address], [place] [address]BP: TERRANCE Yassine PESHODOB: [id number] [place] [id number]: (HP) (WP) [facility] 10/13/2024 TERRANCE Yassine VIKTORIAHODOB: [id number] BOB SANDERS [email or web address]: (HP) Primary Insurance:MEDICARE PART B INSCOPolicy Number: [id number] Date:9665-48-75Hdwi Name:[facility] Administrators [facility] [address] [address], [place] [address]TT: TERRANCE Metzger PESHODOB: [id number] [place] [address]Rlg: (HP) (WP) [facility] 10/13/2024 Secondary Insurance:[employer] INSCOPolicy Number: [id number] Date:9319-04-23Fjik Name:[address], [place] [address]XP: TERRANCE Metzger PESHODOB: [id number] [place] [address]Urv: (HP) (WP) [facility] 10/13/2024 TERRANCE Metzger PESHODOB: [id number] [place] [address]~SJTIANA@ [email or web address]: (HP) Primary Insurance:MEDICARE PART B INSCOPolicy Number: [id number] Date:1916-47-89Lmle Name:[facility] Administrators [facility] [address] [address]oy[place]ofm[place], [place] [address]KS: TERRANCE Metzger PESHODOB: [id number] [place] [address]Mwz: (HP) (WP) [facility] 10/13/2024 Secondary Insurance:[employer]OSS INSCOPolicy Number: [id number] Date:3053-25-84Wist Name:[address] [place] [address]AQ: TERRANCE Metzger PESHODOB: [id number] [place] [address]Fbh: (HP) (WP) [facility] 09/30/2024 TERRANCE Metzger PESHODOB: [place] [address]~RANDELL@ [email or web address]: (HP) Primary Insurance:MEDICARE PART B INSCOPolicy Number: [id number] Date:5577-36-01Daps Name:[facility] Administrators [address] [address]XB: TERRANCE Metzger PESHODOB: [id number] [place] [address]Znu: (HP) (WP) [facility] 09/30/2024 Secondary Insurance:[employer]OSS INSCOPolicy Number: [id number] Date:7775-56-60Dwuz Name:[facility] [place] [address], [place] [address]LN: TERRANCE Metzger PESHODOB: [id number] [place] [address]Qtk: (HP) (WP) [facility] 08/02/2024 TERRANCE Metzger PESHODOB: [place] [address]~RANDELL@ [facility].COMTel: (HP) Primary Insurance:MEDICARE PART B INSCOPolicy Number: [id number] Date:8139-88-02Kmyl Name:[facility] Administrators [facility] [place] [address], [place] [address]LI: TERRANCE Metzger PESHODOB: [id number] [place] [address]Uxg: (HP) (WP) [facility] 08/02/2024 Secondary Insurance:[employer]OSS INSCOPolicy Number: [id number] Date:6140-78-36Negi Name:TERI [place] [address], [place] [address]DI: TERRANCE Metzger PESHODOB: [id number] [place] [address]Dnl: (HP) (WP) [facility] 06/22/2024 TERRANCE Metzger PESHODOB: [id number] [place] [address]~[email or web address]@ [email or web address]: (HP) Primary Insurance:MEDICARE PART B INSCOPolicy Number: [id number] Date:3305-14-72Mqld Name:LUNA LOVETT [place] [address] [place] [address]BW: TERRANCE Metzger PESHODOB: [id number] [place] [address]Nym: (HP) (WP) [facility] 06/22/2024 Secondary Insurance:ANTHJORGE BLUE CROSS INSCOPolicy Number: [id number] Date:9842-45-23Dear Name:TERI Reynoso [address], [place] [address]SG: TERRANCE Metzger PESHODOB: [id number] [place] [address]Lxo: (HP) (WP) [facility] 06/07/2024 TERRANCE Metzger PESHODOB: [id number] [place] [address]~[email or web address]@ [email or web address]: (HP) Primary Insurance:MEDICARE PART B INSCOPolicy Number: [id number] Date:6126-23-98Jsth Name:[facility] Administrators [facility] [place] [address]OA: TERRANCE Metzger PESHODOB: [id number] [place] [address]Epo: (HP) (WP) [facility] 06/07/2024 Secondary Insurance:[employer] BLUE CROSS INSCOPolicy Number: [id number] Date:3993-13-62Zanh Name:Hernan [place], [place] [address]IK: TERRANCE Metzger PESHODOB: [id number] [place] [address]Cya: (HP) (WP) [facility] 05/31/2024 TERRANCE Metzger PESHODOB: [id number] [place] [address]~FABIÁN@ [facility]: (HP) Primary Insurance:MEDICARE PART B INSCOPolicy Number: [id number] Date:4734-90-39Xccr Name:[facility] Administrators [facility] [place] [address]PV: TERRANCE Metzger PESHODOB: [id number] [place] [address]Ngb: (HP) () [facility] 05/31/2024 Secondary Insurance:[employer]M BLUE CROSS INSCOPolicy Number: [id number] Date:0505-35-95Mnzq Name:[place] [address]YL: TERRANCE Metzger PESHODOB: [id number] [place] [address]Uhj: (HP) (WP) [facility] 05/24/2024 TERRANCE Metzger PESHODOB: [id number] [place] [address]~VIKTORIA@ [facility].COMTel: (HP) Primary Insurance:MEDICARE PART B INSCOPolicy Number: [id number] Date:4349-45-39Qcnb Name:[facility] Administrators [address] [address]FN: TERRANCE Metzger PESHODOB: [id number] [place] [address]Hsj: (HP) (WP) [facility] 05/24/2024 Secondary Insurance:ANTHEM Whittl CROSS INSCOPolicy Number: [id number] Date:7841-79-75Xxjk Name:[facility] [place] [address]40[address], [place] [address]JV: TERRANCE Metzger PESHODOB: [id number] [place] [address]Iql: (HP) (WP) [facility] 04/19/2024 TERRANCE Metzger PESHODOB: [id number] [place] [address]~VIKTORIA@ [facility].COMTel: (HP) Primary Insurance:MEDICARE PART B INSCOPolicy Number: [id number] Date:4569-02-62Paeg Name:[facility] Administrators [facility] [place] [address], [place] [address]WP: TERRANCE Metzger PESHODOB: [id number] [place] [address]Iou: (HP) (WP) [facility] 04/19/2024 Secondary Insurance:JOSH VELARDE INSCOPolicy Number: [id number] Date:1453-84-91Ervw Name:[facility] [place], [place] [address]NV: TERRANCE Metzger PESHODOB: [id number] [place] [address]Xsj: (HP) (WP) [facility] 04/01/2024 TERRANCE W PESHODOB: [place] [address]~SJVIKTORIAH@ [facility]: (HP) Primary Insurance:MEDICARE PART B INSCOPolicy Number: [id number] Date:3995-85-70Phhc Name:[facility]ats[facility] Wilmer [facility] [address] [address]Zglkfvly[place], [place] [address]IO: TERRANCE Yassine PESHODOB: [id number] [place] [address]Kql: (HP) (WP) [facility] 04/01/2024 Secondary Insurance:JOSH VELARDE INSCOPolicy Number: [id number] Date:1273-24-30Fifl Name:[facility] [address], [place] [address]SL: TERRANCE BLUMHODOB: [id number] [place] [address]Cat: (HP) (WP) [facility] 02/25/2024 TERRANCE BLUMHODOB: [id number] [place] [address]~RANDELL@ [facility].COMTel: (HP) Primary Insurance:MEDICARE PART B INSCOPolicy Number: [id number] Date:1232-42-07Hucg Name:[facility] Administrators [facility] [place] [address]psrqxqic, [place] [address]OE: TERRANCE Metzger PESHODOB: [id number] [place] [address]Cwg: (HP) (WP) [facility] 02/25/2024 Secondary Insurance:[employer]HEM BLUE CROSS INSCOPolicy Number: [id number] Date:3117-61-58Qtuu Name:[address] [address]VZ: TERRANCE Metzger PESHODOB: [id number] [place] [address]Epw: (HP) (WP) [facility] 02/13/2024 TERRANCE Metzger PESHODOB: [id number] [place] [address]~VIKTORIA@ [facility].COMTel: (HP) Primary Insurance:MEDICARE PART B INSCOPolicy Number: [id number] Date:5982-87-69Aieq Name:[facility] Administrators [address] [address]JQ: TERRANCE Metzger PESHODOB: [id number] [place] [address]Piz: (HP) (WP) [facility] 02/13/2024 Secondary Insurance:[employer]HEM BLUE CROSS INSCOPolicy Number: [id number] Date:1391-93-75Cktu Name:[facility] [address] [place], [place] [address]WP: TERRANCE Metzger PESHODOB: [id number] [place] [address]Yff: (HP) (WP) [facility] 01/05/2024 TERRANCE Metzger PESHODOB: [place] [address]~RANDELL@ [facility].COMTel: (HP) Primary Insurance:MEDICARE PART B INSCOPolicy Number: [id number] Date:7360-43-36Eswe Name:[facility] Administrators [address] [place], [place] [address]TE: TERRANCE Metzger PESHODOB: [id number] [place] [address]Tpy: (HP) (WP) [facility] 01/05/2024 Secondary Insurance:ANTHEM Whittl CROSS INSCOPolicy Number: [id number] Date:3830-91-80Aako Name:[facility] [place] [address], [place] [address]WN: TERRANCE Metzger PESHODOB: [id number] [place] [address]Hej: (HP) (WP) [facility] 01/01/2024 TERRANCE Metzger PESHODOB: [place] [address]~RANDELL@ [facility].COMTel: (HP) Primary Insurance:MEDICARE PART B INSCOPolicy Number: [id number] Date:7540-70-28Vowz Name:[facility] [address] [place], [place] [address]LP: TERRANCE Metzger PESHODOB: [id number] [place] [address]Sey: (HP) (WP) [facility] 01/01/2024 Secondary Insurance:ANTHEM Whittl CROSS INSCOPolicy Number: [id number] Date:4425-15-85Vfus Name:[place] [address]ID: TERRANCE Metzger PESHODOB: [id number] [place] [address]Gkt: (HP) (WP) [facility] 12/30/2023 TERRANCE Metzger PESHODOB: [id number] [place] [address]~FABIÁN@ [facility]el: (HP) Primary Insurance:MEDICARE PART B INSCOPolicy Number: [id number] Date:6678-64-59Rqpc Name:LUNA Reynoso [address]Xxnntepiv, [place] [address]WC: TERRANCE Metzger PESHODOB: [id number] [place] [address]Fpa: (HP) (WP) [facility] 12/30/2023 Secondary Insurance:ANTHEM Whittl CROSS INSCOPolicy Number: [id number] Date:7410-54-70Hbsk Name:SHUNO [place] [address]WL: TERRANCE BLUMHODOB: [id number] [place] [address]Vkn: (HP) (WP) [facility] 11/14/2023 TERRANCE MEREDITHB: [id number] [place] [address]~SJPESH@ [facility].COMTel: (HP) Primary Insurance:MEDICARE PART B INSCOPolicy Number: [id number] Date:9961-01-44Wqwp Name:[facility] Administrators [address] [address], [place] [address]TM: TERRANCE Metzger PESHODOB: [id number] [place] [address]Diu: (HP) (WP) [facility] 11/14/2023 Secondary Insurance:ANTHEM Mealnut INSCOPolicy Number: [id number] Date:1502-33-69Vced Name:O [place] [address], [place] [address]RR: TERRANCE BLUMHODOB: [id number] [place] [address]Oqb: (HP) (WP) [facility]
[2024-11-09 15:02] LABS: PSA,Total- Diagnostic 0.35 ng/mL (0.00-4.00)
== END | disposition home or self-care (01) ==
LOC: LAB 13:41
PROVIDERS: PCP Family Medicine; Referring Provider Urology; Visit Provider Urology
DX: N40.1 Benign prostatic hyperplasia with lower urinary tract symptoms (principal)
CPT/HCPCS: 36415; 84153